=== PATIENT | male | born 1950 | race Caucasian/White ===

== ENCOUNTER 2017-01-01 12:36 | Emergency (ER) | payer MEDICARE, OTHER ==
--- NOTE | 2017-01-01 14:04 | REP ---
Clinical: Pain. Technique: AP, lateral, bilateral oblique and sunrise views of the right knee. Findings: Advanced tricompartmental osteoarthritic degenerative changes include osteophytosis, subchondral sclerosis and joint space narrowing including osteophytes, subchondral sclerosis and patellofemoral joint space narrowing. No acute fracture dislocation. No obvious effusion. Impression: Advanced tricompartmental osteoarthritic degenerative changes. Signed by Sotero Lugo MD 01/01/2017 01:56 P
--- NOTE | 2017-01-01 14:30 | EDDOCDS ---
Physician Documentation [facility] Name: Malvin Valderrama Age: 66 yrs Sex: Male : 1950 Arrival Date: 01/01/2017 Time: 12:36 Bed I7 / 29 Private MD: Disposition: 01/01/17 14:02 Discharged to Home/Self Care. Impression: Pain in right knee. - Condition is Stable. - Discharge Instructions: Knee Pain. - Prescriptions for Colace 100 mg Oral Tablet - take 1 tablet by ORAL route every 12 hours; 14 tablet. Percocet 5- 325 mg Oral Tablet - take 1 tablet by ORAL route every 8-12 hours As needed MDD: 4 tabs; 10 tablet. - Medication Reconciliation, Local Pharmacy Hours form. - Follow up: Savannah Rangel MD; When: Call to arrange an appointment; Reason: Continuance of care. Follow up: Andrea Hinds MD; When: Call to arrange an appointment; Reason: Continuance of care. - Problem is chronic. - Symptoms are unchanged. Historical: - Allergies: no known allergies; - Home Meds: 1. metformin 1,000 mg Oral tr24 1 tab twice a day 2. warfarin 5 mg Oral tab 1 tab once daily 3. carvedilol 6.25 mg oral tab 1 tab 2 times per day 4. simvastatin 40 mg Oral tab 1 tab once daily 5. sotalol 80 mg Oral tab 1 tab daily 6. doxazosin 2 mg oral tab 1 tab once daily 7. glipizide 5 mg Oral tr24 1 tab once daily 8. lisinopril 40 mg Oral tab 1 tab once daily 9. Novolin 70/30 InnoLet 100 unit/mL (70-30) Sub-Q inpn 32 unit daily - PMHx: Diabetes - IDDM: uncontrolled; unknown heart problems - states "they shocked my heart back to normal"; Hypertension; CVA; neuropathy; PE; - PSHx: Cholecystectomy; Appendectomy; Tonsillectomy; Adenoidectomy; cardiac cath; - Social history: Smoking status: Patient states was never smoker of tobacco. No barriers to communication noted, The patient speaks fluent Divehi, Speaks appropriately for age. - Family history: Not pertinent. - : The pt / caregiver states he / she is on anticoagulants: coumadin. Home medication list is obtained from the patient. - Exposure Risk Screening:: None identified. Vital Signs: 01/01 12:55 BP 142 / 89; Pulse 87; Resp 18; Temp 99.5(O); Pulse Ox 96% on R/A; Weight 149.69 kg / pml 330.01 lbs; Height 6 ft. 0 in. (182.88 cm); Pain 0/10; 14:29 BP 138 / 87; Pulse 92; Resp 18; Temp 99.4; Pulse Ox 96% ; pml 12:55 Body Mass Index 44.76 (149.69 kg, 182.88 cm) pml MDM: 13:21 Misc. Nursing Order ordered. fg 13:22 Knee, Complete Ordered. EDMS 13:53 Financial registration complete. lg 14:13 [facility] [place] Payment Agreement was scanned into [employer] and attached to record. lg Signatures: Dispatcher [employer] EDDhara Benson Reg Reg lg Morena Pascual,RAFFI RN pml Samantha Briceño MD MD fg The chart was reviewed and I authenticate all verbal orders and agree with the evaluation and treatment provided.Attachments: 14:13 [facility] [place] Payment Agreement lg MTDD
--- NOTE | 2017-01-01 14:30 | EDDOCDS ---
Nurse's Notes [facility] Name: Malvin Valderrama Age: 66 yrs Sex: Male : 1950 Arrival Date: 01/01/2017 Time: 12:36 Bed I7 / 29 Private MD: Diagnosis: Pain in right knee Presentation: 01/01 12:55 Presenting complaint: Patient states: woke up this AM with a headache which has pml resolved. pt reports pain in right knee. states unable to bear weight. denies injury. This patient has no additional risk factors. Adult Sepsis Screening: The patient does not have new or worsening altered mentation. Patient's respiratory rate is less than 22. Systolic blood pressure is greater than 100. Patient has a qSOFA score of 0- Negative Sepsis Screen. Suicide/Homicide risk assessment- the patient denies having any suicidal and/or homicidal ideations and does not present with any other emotional, behavioral or mental health complaints. Status: Patient is not a service or work dispatcher or dependent. Transition of care: patient was not received from another setting of care. 12:55 Acuity: MARLEN Level 3 pml 12:55 Method Of Arrival: Ambulance pml Triage Assessment: 12:55 Headache History: This patient does not have a history of previous headaches. General: pml Appears in no apparent distress, comfortable, Behavior is appropriate for age, cooperative. Pain: Location: right knee Pain currently is 0 out of 10 on a pain scale. At worst was 10 out of 10 on a pain scale. Pain began this AM Also complains of no other associated symptoms. The patient is triaged at the bedside. See Assessment in Nurses Notes section of ED record. Neurological: Level of Consciousness is awake, alert, Oriented to person, place, time. Cardiovascular: Capillary refill < 3 seconds. Respiratory: Airway is patent Respiratory effort is even, unlabored, Respiratory pattern is regular, symmetrical. GI: Abdomen is non- distended. Derm: Skin is pink, warm & dry. Historical: - Allergies: no known allergies; - Home Meds: 1. metformin 1,000 mg Oral tr24 1 tab twice a day 2. warfarin 5 mg Oral tab 1 tab once daily 3. carvedilol 6.25 mg oral tab 1 tab 2 times per day 4. simvastatin 40 mg Oral tab 1 tab once daily 5. sotalol 80 mg Oral tab 1 tab daily 6. doxazosin 2 mg oral tab 1 tab once daily 7. glipizide 5 mg Oral tr24 1 tab once daily 8. lisinopril 40 mg Oral tab 1 tab once daily 9. Novolin 70/30 InnoLet 100 unit/mL (70-30) Sub-Q inpn 32 unit daily - PMHx: Diabetes - IDDM: uncontrolled; unknown heart problems - states "they shocked my heart back to normal"; Hypertension; CVA; neuropathy; PE; - PSHx: Cholecystectomy; Appendectomy; Tonsillectomy; Adenoidectomy; cardiac cath; - Social history: Smoking status: Patient states was never smoker of tobacco. No barriers to communication noted, The patient speaks fluent Albanian, Speaks appropriately for age. - Family history: Not pertinent. - : The pt / caregiver states he / she is on anticoagulants: coumadin. Home medication list is obtained from the patient. - Exposure Risk Screening:: None identified. Screenin:59 Screening information is obtained from the patient. Fall risk: At risk due to pml immobility. Assistance ADL's: requires no assistance with activities of daily living. Abuse/DV Screen: The patient / caregiver reports he/she is: not in a situation that causes fear, pain or injury. Nutritional screening: No deficits noted. Advance Directives: Currently, there is no health care proxy. home support is adequate. Assessment: 12:59 General: see triage note. pml 14:20 General: Appears in no apparent distress, Behavior is appropriate for age, cooperative. pml Pain: Location: right knee Pain currently is 0 out of 10 on a pain scale. Neurological: Level of Consciousness is awake, alert, Oriented to person, place, time. Cardiovascular: Capillary refill < 3 seconds. Respiratory: Airway is patent Respiratory effort is even, unlabored. GI: Abdomen is non- distended obese. Derm: Skin is pink, warm & dry. Vital Signs: 12:55 BP 142 / 89; Pulse 87; Resp 18; Temp 99.5(O); Pulse Ox 96% on R/A; Weight 149.69 kg; pml Height 6 ft. 0 in. (182.88 cm); Pain 0/10; 14:29 BP 138 / 87; Pulse 92; Resp 18; Temp 99.4; Pulse Ox 96% ; pml 12:55 Body Mass Index 44.76 (149.69 kg, 182.88 cm) [facility] Vitals: 12:55 Log In Time N/A - ambulance arrival. pml ED Course: 12:37 Patient visited by Margo Morris PCA. ar3 12:37 Patient moved to Waiting ar3 12:38 Patient moved to I7 ar3 12:57 Triage Initiated pml 12:59 Patient visited by Morena Pascual RN. pml 12:59 The patient / caregiver is instructed regarding the plan of care and ED course. Patient pml has correct armband on for positive identification. Placed in gown. Bed in low position. Call light in reach. Side rails up X2. 13:07 Samantha Briceño MD is Attending Physician. fg 13:07 Patient visited by Samantha Briceño MD. fg 14:01 Savannah Rangel MD is Referral Physician. fg 14:01 Andrea Hinds MD is Referral Physician. fg 14:11 Patient name changed from Malvin\\S\\\\S\\Valderrama\\S\\ to Malvin\\S\\Slade\\S\\Valderrama. EDWI 14:13 [facility] Payment Agreement was scanned into [employer] and attached to record. lg 14:20 No IV's were initiated during this patient's visit. No procedures done that require pml assistance. Eric wrap to right knee. Patient has positive distal pulse, brisk capillary refill, and positive sensation after application. Order Results: There are currently no results for this order. Outcome: 14:02 Discharge ordered by Provider. fg 14:20 Discharge Assessment: Patient awake, alert and oriented x 3. No cognitive and/or pml functional deficits noted. Patient verbalized understanding of disposition instructions. patient administered narcotics - no. The following High Risk Discharge criteria are identified: None. Discharged to home with family. Condition: good Condition: stable. Discharge instructions given to patient, Instructed on discharge instructions, follow up and referral plans. medication usage, no driving heavy equipment, Demonstrated understanding of instructions, medications, Pt was receptive of discharge instructions/ teaching. No special radiology studies were completed. Property sent home with patient. 14:29 Patient left the ED. pml Signatures: Dispatcher [employer] EDWI Dhara Stringer, Reg Reg Margo Morris PCA WAN SUPPORT SPECIALIST ar3 Morena Pascual RN RN pml Samantha Briceño MD MD fg MTDD
--- NOTE | 2017-01-03 15:29 | EDDOCDS ---
Nurse's Notes [facility] Name: Malvin Valderrama Age: 66 yrs Sex: Male : 1950 Arrival Date: 01/01/2017 Time: 12:36 Bed I7 / 29 Private MD: Diagnosis: Pain in right knee Presentation: 01/01 12:55 Presenting complaint: Patient states: woke up this AM with a headache which has pml resolved. pt reports pain in right knee. states unable to bear weight. denies injury. This patient has no additional risk factors. Adult Sepsis Screening: The patient does not have new or worsening altered mentation. Patient's respiratory rate is less than 22. Systolic blood pressure is greater than 100. Patient has a qSOFA score of 0- Negative Sepsis Screen. Suicide/Homicide risk assessment- the patient denies having any suicidal and/or homicidal ideations and does not present with any other emotional, behavioral or mental health complaints. 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 Transition of care: patient was not received from another setting of care. 12:55 Acuity: MARLEN Level 3 pml 12:55 Method Of Arrival: Ambulance pml Triage Assessment: 12:55 Headache History: This patient does not have a history of previous headaches. General: pml Appears in no apparent distress, comfortable, Behavior is appropriate for age, cooperative. Pain: Location: right knee Pain currently is 0 out of 10 on a pain scale. At worst was 10 out of 10 on a pain scale. Pain began this AM Also complains of no other associated symptoms. The patient is triaged at the bedside. See Assessment in Nurses Notes section of ED record. Neurological: Level of Consciousness is awake, alert, Oriented to person, place, time. Cardiovascular: Capillary refill < 3 seconds. Respiratory: Airway is patent Respiratory effort is even, unlabored, Respiratory pattern is regular, symmetrical. GI: Abdomen is non- distended. Derm: Skin is pink, warm & dry. Historical: - Allergies: no known allergies; - Home Meds: 1. metformin 1,000 mg Oral tr24 1 tab twice a day 2. warfarin 5 mg Oral tab 1 tab once daily 3. carvedilol 6.25 mg oral tab 1 tab 2 times per day 4. simvastatin 40 mg Oral tab 1 tab once daily 5. sotalol 80 mg Oral tab 1 tab daily 6. doxazosin 2 mg oral tab 1 tab once daily 7. glipizide 5 mg Oral tr24 1 tab once daily 8. lisinopril 40 mg Oral tab 1 tab once daily 9. Novolin 70/30 InnoLet 100 unit/mL (70-30) Sub-Q inpn 32 unit daily - PMHx: Diabetes - IDDM: uncontrolled; unknown heart problems - states "they shocked my heart back to normal"; Hypertension; CVA; neuropathy; PE; - PSHx: Cholecystectomy; Appendectomy; Tonsillectomy; Adenoidectomy; cardiac cath; - Social history: Smoking status: Patient states was never smoker of tobacco. No barriers to communication noted, The patient speaks fluent Indonesian, Speaks appropriately for age. - Family history: Not pertinent. - : The pt / caregiver states he / she is on anticoagulants: coumadin. Home medication list is obtained from the patient. - Exposure Risk Screening:: None identified. Screenin:59 Screening information is obtained from the patient. Fall risk: At risk due to pml immobility. Assistance ADL's: requires no assistance with activities of daily living. Abuse/DV Screen: The patient / caregiver reports he/she is: not in a situation that causes fear, pain or injury. Nutritional screening: No deficits noted. Advance Directives: Currently, there is no health care proxy. home support is adequate. Assessment: 12:59 General: see triage note. pml 14:20 General: Appears in no apparent distress, Behavior is appropriate for age, cooperative. pml Pain: Location: right knee Pain currently is 0 out of 10 on a pain scale. Neurological: Level of Consciousness is awake, alert, Oriented to person, place, time. Cardiovascular: Capillary refill < 3 seconds. Respiratory: Airway is patent Respiratory effort is even, unlabored. GI: Abdomen is non- distended obese. Derm: Skin is pink, warm & dry. Vital Signs: 12:55 BP 142 / 89; Pulse 87; Resp 18; Temp 99.5(O); Pulse Ox 96% on R/A; Weight 149.69 kg; pml Height 6 ft. 0 in. (182.88 cm); Pain 0/10; 14:29 BP 138 / 87; Pulse 92; Resp 18; Temp 99.4; Pulse Ox 96% ; pml 12:55 Body Mass Index 44.76 (149.69 kg, 182.88 cm) [facility] Vitals: 12:55 Log In Time N/A - ambulance arrival. pml ED Course: 12:37 Patient visited by Margo Morris PCA. ar3 12:37 Patient moved to Waiting ar3 12:38 Patient moved to I7 / ar3 12:57 Triage Initiated pml 12:59 Patient visited by Morena Pascual RN. pml 12:59 The patient / caregiver is instructed regarding the plan of care and ED course. Patient pml has correct armband on for positive identification. Placed in gown. Bed in low position. Call light in reach. Side rails up X2. 13:07 Samantha Briceño MD is Attending Physician. fg 13:07 Patient visited by Samantha Briceño MD. fg 14:01 Savannah Rangel MD is Referral Physician. fg 14:01 Andrea Hinds MD is Referral Physician. fg 14:11 Patient name changed from Malvin\\S\\\\S\\Valderrama\\S\\ to Malvin\\S\\Slade\\S\\Valderrama. EDMS 14:13 [facility] [place] Payment Agreement was scanned into [employer] and attached to record. lg 14:20 No IV's were initiated during this patient's visit. No procedures done that require pml assistance. Eric wrap to right knee. Patient has positive distal pulse, brisk capillary refill, and positive sensation after application. 14:31 Knee, Complete Returned. EDMS 17:52 T-Sheet-- Draft Copy was scanned into [employer] and attached to record. klr 01/02 12:24 PCR was scanned into [employer] and attached to record. gb Order Results: Radiology Order: Knee, Complete Test: Knee, Complete REASON FOR EXAMINATION: patella pain, no trauma; Clinical: Pain.; ; Technique: AP, lateral, bilateral oblique and sunrise views of the right knee.; ; Findings:; Advanced tricompartmental osteoarthritic degenerative changes include; osteophytosis, subchondral sclerosis and joint space narrowing including; osteophytes, subchondral sclerosis and patellofemoral joint space narrowing. No; acute fracture dislocation. No obvious effusion.; ; Impression:; Advanced tricompartmental osteoarthritic degenerative changes.; ; ; Signed by; Sotero Lugo MD 01/01/2017 01:56 P; Outcome: 01/01 14:02 Discharge ordered by Provider. fg 14:20 Discharge Assessment: Patient awake, alert and oriented x 3. No cognitive and/or pml functional deficits noted. Patient verbalized understanding of disposition instructions. patient administered narcotics - no. The following High Risk Discharge criteria are identified: None. Discharged to home with family. Condition: good Condition: stable. Discharge instructions given to patient, Instructed on discharge instructions, follow up and referral plans. medication usage, no driving heavy equipment, Demonstrated understanding of instructions, medications, Pt was receptive of discharge instructions/ teaching. No special radiology studies were completed. Property sent home with patient. 14:29 Patient left the ED. pml Signatures: Dispatcher [employer] EDMS Anne Holt, Reg Reg gb Dhara Stringer, Reg Reg lg Margo Morris, CHURCH MUSICIAN CHURCH MUSICIAN ar3 Morena Pascual,RN RN Samantha Thompson MD MD fg Redder, Kathie klr Chart Complete JOSEPH
--- NOTE | 2017-01-03 15:29 | EDDOCDS ---
Physician Documentation [facility] Name: Malvin Valderrama Age: 66 yrs Sex: Male : 1950 Arrival Date: 01/01/2017 Time: 12:36 Bed I7 / 29 Private MD: Disposition: 01/01/17 14:02 Discharged to Home/Self Care. Impression: Pain in right knee. - Condition is Stable. - Discharge Instructions: Knee Pain. - Prescriptions for Colace 100 mg Oral Tablet - take 1 tablet by ORAL route every 12 hours; 14 tablet. Percocet 5- 325 mg Oral Tablet - take 1 tablet by ORAL route every 8-12 hours As needed MDD: 4 tabs; 10 tablet. - Medication Reconciliation, Local Pharmacy Hours form. - Follow up: Savannah Rangel MD; When: Call to arrange an appointment; Reason: Continuance of care. Follow up: Andrea Hinds MD; When: Call to arrange an appointment; Reason: Continuance of care. - Problem is chronic. - Symptoms are unchanged. Historical: - Allergies: no known allergies; - Home Meds: 1. metformin 1,000 mg Oral tr24 1 tab twice a day 2. warfarin 5 mg Oral tab 1 tab once daily 3. carvedilol 6.25 mg oral tab 1 tab 2 times per day 4. simvastatin 40 mg Oral tab 1 tab once daily 5. sotalol 80 mg Oral tab 1 tab daily 6. doxazosin 2 mg oral tab 1 tab once daily 7. glipizide 5 mg Oral tr24 1 tab once daily 8. lisinopril 40 mg Oral tab 1 tab once daily 9. Novolin 70/30 InnoLet 100 unit/mL (70-30) Sub-Q inpn 32 unit daily - PMHx: Diabetes - IDDM: uncontrolled; unknown heart problems - states "they shocked my heart back to normal"; Hypertension; CVA; neuropathy; PE; - PSHx: Cholecystectomy; Appendectomy; Tonsillectomy; Adenoidectomy; cardiac cath; - Social history: Smoking status: Patient states was never smoker of tobacco. No barriers to communication noted, The patient speaks fluent Swedish, Speaks appropriately for age. - Family history: Not pertinent. - : The pt / caregiver states he / she is on anticoagulants: coumadin. Home medication list is obtained from the patient. - Exposure Risk Screening:: None identified. Vital Signs: 01/01 12:55 BP 142 / 89; Pulse 87; Resp 18; Temp 99.5(O); Pulse Ox 96% on R/A; Weight 149.69 kg / pml 330.01 lbs; Height 6 ft. 0 in. (182.88 cm); Pain 0/10; 14:29 BP 138 / 87; Pulse 92; Resp 18; Temp 99.4; Pulse Ox 96% ; pml 12:55 Body Mass Index 44.76 (149.69 kg, 182.88 cm) pml MDM: 13:21 Misc. Nursing Order ordered. fg 13:22 Knee, Complete Ordered. EDMS 13:53 Financial registration complete. lg 14:13 [facility] [place] Payment Agreement was scanned into [employer] and attached to record. lg 17:52 T-Sheet-- Draft Copy was scanned into [employer] and attached to record. klr 01/02 12:24 PCR was scanned into [employer] and attached to record. gb Signatures: Dispatcher [employer] EDMS Anne Holt, Reg Reg gb Dhara Stringer, Reg Reg lg Morena Pascual,RN RN pml Samantha Briceño MD MD fg Redder, Kathie klr The chart was reviewed and I authenticate all verbal orders and agree with the evaluation and treatment provided.Attachments: 01/01 14:13 [facility] [place] Payment Agreement lg 17:52 T-Sheet-- Draft Copy klr Chart Complete MTDD
--- NOTE | 2017-01-03 15:29 | EDDOCDS ---
Physician Documentation [facility] Name: Malvin Valderrama Age: 66 yrs Sex: Male : 1950 Arrival Date: 01/01/2017 Time: 12:36 Bed I7 / 29 Private MD: Disposition: 01/01/17 14:02 Discharged to Home/Self Care. Impression: Pain in right knee. - Condition is Stable. - Discharge Instructions: Knee Pain. - Prescriptions for Colace 100 mg Oral Tablet - take 1 tablet by ORAL route every 12 hours; 14 tablet. Percocet 5- 325 mg Oral Tablet - take 1 tablet by ORAL route every 8-12 hours As needed MDD: 4 tabs; 10 tablet. - Medication Reconciliation, Local Pharmacy Hours form. - Follow up: Savannah Rangel MD; When: Call to arrange an appointment; Reason: Continuance of care. Follow up: Andrea Hinds MD; When: Call to arrange an appointment; Reason: Continuance of care. - Problem is chronic. - Symptoms are unchanged. Historical: - Allergies: no known allergies; - Home Meds: 1. metformin 1,000 mg Oral tr24 1 tab twice a day 2. warfarin 5 mg Oral tab 1 tab once daily 3. carvedilol 6.25 mg oral tab 1 tab 2 times per day 4. simvastatin 40 mg Oral tab 1 tab once daily 5. sotalol 80 mg Oral tab 1 tab daily 6. doxazosin 2 mg oral tab 1 tab once daily 7. glipizide 5 mg Oral tr24 1 tab once daily 8. lisinopril 40 mg Oral tab 1 tab once daily 9. Novolin 70/30 InnoLet 100 unit/mL (70-30) Sub-Q inpn 32 unit daily - PMHx: Diabetes - IDDM: uncontrolled; unknown heart problems - states "they shocked my heart back to normal"; Hypertension; CVA; neuropathy; PE; - PSHx: Cholecystectomy; Appendectomy; Tonsillectomy; Adenoidectomy; cardiac cath; - Social history: Smoking status: Patient states was never smoker of tobacco. No barriers to communication noted, The patient speaks fluent Telugu, Speaks appropriately for age. - Family history: Not pertinent. - : The pt / caregiver states he / she is on anticoagulants: coumadin. Home medication list is obtained from the patient. - Exposure Risk Screening:: None identified. Vital Signs: 01/01 12:55 BP 142 / 89; Pulse 87; Resp 18; Temp 99.5(O); Pulse Ox 96% on R/A; Weight 149.69 kg / pml 330.01 lbs; Height 6 ft. 0 in. (182.88 cm); Pain 0/10; 14:29 BP 138 / 87; Pulse 92; Resp 18; Temp 99.4; Pulse Ox 96% ; pml 12:55 Body Mass Index 44.76 (149.69 kg, 182.88 cm) pml MDM: 13:21 Misc. Nursing Order ordered. fg 13:22 Knee, Complete Ordered. EDMS 13:53 Financial registration complete. lg 14:13 [facility] [place] Agreement was scanned into [employer] and attached to record. lg 17:52 T-Sheet-- Draft Copy was scanned into [employer] and attached to record. klr 01/02 12:24 PCR was scanned into [employer] and attached to record. gb Signatures: Dispatcher [employer] EDMS Anne Holt, Reg Reg gb Dhara Stringer, Reg Reg lg Morena Pascual,RN RN pml Samantha Briceño MD MD fg Redder, Kathie klr The chart was reviewed and I authenticate all verbal orders and agree with the evaluation and treatment provided.Attachments: 01/01 14:13 [facility] Agreement lg 17:52 T-Sheet-- Draft Copy klr Chart Complete MTDD
== END 2017-01-01 14:29 | disposition home or self-care (01) ==
LOC: M ED 12:36
DX: M25.562 Pain in left knee (principal); E11.9 Type 2 diabetes mellitus without complications; I10 Essential (primary) hypertension; G62.9 Polyneuropathy, unspecified; I26.99 Other pulmonary embolism without acute cor pulmonale; I63.9 Cerebral infarction, unspecified; Z79.01 Long term (current) use of anticoagulants; Z79.84 Long term (current) use of oral hypoglycemic drugs; Z79.899 Other long term (current) drug therapy; Z79.4 Long term (current) use of insulin

== ENCOUNTER → 2020-06-15 | Outpatient (REF) | payer MEDICARE | LOC: M LAB REF 10:14 | PROVIDERS: ATTEND Physician Assistant | DX: C44.319 Basal cell carcinoma of skin of other parts of face (principal) ==

== ENCOUNTER → 2021-02-26 | Outpatient (REF) | payer MEDICARE ==
[2021-02-26 13:09] LABS: CALCIUM LEVEL 8.9 MG/DL (8.8-10.2); CREATININE FOR GFR 1.45 MG/DL (0.70-1.30); GLOMERULAR FILTRATION RATE 51.1 (>42); POTASSIUM SERUM 5.7 MEQ/L (3.5-5.1)
[2021-02-26 13:21] LABS: MALB URINE SIEMENS 5.1 MG/L; MAU/CREAT RATIO 3.1 MCG/MG (0.0-30.0)
[2021-02-26 14:15] LABS: HEMOGLOBIN A1c 7.7 %
== END ==
LOC: M LABDRWAD 12:17
PROVIDERS: ATTEND Nurse Practitioner Family
DX: E11.65 Type 2 diabetes mellitus with hyperglycemia (principal)

== ENCOUNTER → 2021-06-04 | Outpatient (CLI) | payer MEDICARE ==
--- NOTE | 2021-06-04 09:15 | REP ---
INDICATION: DYSPNEA, UNSPECIFIED. COMPARISON: Comparison chest x-ray is from July 20, 2018. TECHNIQUE: Two views.. FINDINGS: The lungs are well inflated and free of infiltrate. The pleural angles are sharp. The heart size is normal. Pulmonary vasculature is not increased. No significant bony abnormality is seen. The thoracic aorta is somewhat tortuous as before. There are degenerative changes in the thoracic spine. IMPRESSION: No acute disease.. <Electronically signed by Alexx Munson > 06/04/21 0935
== END ==
LOC: M ADAMS 08:56
PROVIDERS: ATTEND Physician Assistant
DX: R06.00 Dyspnea, unspecified (principal)

== ENCOUNTER → 2021-07-01 | Outpatient (REF) | payer MEDICARE ==
[2021-07-01 13:21] LABS: HEMOGLOBIN A1c 7.7 %
[2021-07-01 13:36] LABS: ALBUMIN 3.3 GM/DL (3.2-5.2); BILIRUBIN,TOTAL 0.4 MG/DL (0.2-1.0); CALCIUM LEVEL 8.4 MG/DL (8.8-10.2); CHOLESTEROL RISK RATIO 3.607 (<5); CREATININE FOR GFR 1.43 MG/DL (0.70-1.30); GLOMERULAR FILTRATION RATE 51.9 (>42); POTASSIUM SERUM 5.5 MEQ/L (3.5-5.1); TOTAL PROTEIN 7.6 GM/DL (6.4-8.2)
== END ==
LOC: M LABDRWAD 12:15
PROVIDERS: ATTEND Nurse Practitioner Family
DX: E11.65 Type 2 diabetes mellitus with hyperglycemia (principal)

== ENCOUNTER → 2022-01-28 | Outpatient (REF) | payer MEDICARE ==
[2022-01-28 18:03] LABS: HEMOGLOBIN A1c 8.1 %
[2022-01-28 18:08] LABS: CREATININE, URINE 98.5 MG/DL; MALB URINE SIEMENS 11.9 MG/L
[2022-01-28 18:25] LABS: ALBUMIN 3.4 GM/DL (3.2-5.2); BILIRUBIN,TOTAL 0.5 MG/DL (0.2-1.0); CALCIUM LEVEL 9.5 MG/DL (8.8-10.2); CHOLESTEROL RISK RATIO 3.709 (<5); CREATININE FOR GFR 1.56 MG/DL (0.70-1.30); GLOMERULAR FILTRATION RATE 46.8 (>42); POTASSIUM SERUM 5.2 MEQ/L (3.5-5.1)
== END ==
LOC: M LABDRWAD 16:20
PROVIDERS: ATTEND Nurse Practitioner Family
DX: E11.65 Type 2 diabetes mellitus with hyperglycemia (principal)

== ENCOUNTER → 2022-08-01 | Outpatient (CLI) | payer MEDICARE ==
[2022-08-01 13:28] LABS: ALBUMIN 3.3 GM/DL (3.2-5.2); BILIRUBIN,TOTAL 0.6 MG/DL (0.2-1.0); CALCIUM LEVEL 8.9 MG/DL (8.8-10.2); CREATININE FOR GFR 1.75 MG/DL (0.70-1.30); POTASSIUM SERUM 5.3 MEQ/L (3.5-5.1); TOTAL PROTEIN 7.9 GM/DL (6.4-8.2)
== END ==
LOC: M ADAMS 10:38
PROVIDERS: ATTEND Nurse Practitioner Family
DX: E11.65 Type 2 diabetes mellitus with hyperglycemia (principal)

== ENCOUNTER → 2023-02-14 | Outpatient (REF) | payer MEDICARE ==
[2023-02-14 15:17] LABS: CALCIUM LEVEL 8.3 MG/DL (8.3-10.6); CHOLESTEROL RISK RATIO 4.21 (<5); CREATININE FOR GFR 1.34 MG/DL (0.70-1.30); GLOMERULAR FILTRATION RATE 55.6 (>42); HDL CHOLESTEROL 22.3 MG/DL (>40); LDL CHOLESTEROL 52.7 MG/DL (<100); NON-HDL-C 71.7 MG/DL; POTASSIUM SERUM 5.1 MMOL/L (3.5-5.1)
[2023-02-14 15:35] LABS: MAU/CREAT RATIO 2.8 MCG/MG (0.0-30.0)
[2023-02-14 16:13] LABS: HEMOGLOBIN A1c 7.3 % (4.0-6.0)
== END ==
LOC: M LABDRWAD 12:57
PROVIDERS: ATTEND Nurse Practitioner Family
DX: E11.65 Type 2 diabetes mellitus with hyperglycemia (principal); E78.5 Hyperlipidemia, unspecified

== ENCOUNTER → 2023-08-28 | Outpatient (REF) | payer MEDICARE, OTHER ==
[2023-08-28 15:28] LABS: HEMOGLOBIN A1c 6.3 % (4.0-6.0)
[2023-08-28 15:39] LABS: CALCIUM LEVEL 8.3 MG/DL (8.3-10.6); CREATININE FOR GFR 1.49 MG/DL (0.70-1.30); GLOMERULAR FILTRATION RATE 49.2 (>42); POTASSIUM SERUM 5.5 MMOL/L (3.5-5.1)
[2023-08-29 15:09] LABS: CREATININE, URINE 157.5 MG/DL; MAU/CREAT RATIO 3.1 MCG/MG (0.0-30.0)
== END ==
LOC: M LABDRWAD 13:18
PROVIDERS: ATTEND Nurse Practitioner Family
DX: E11.65 Type 2 diabetes mellitus with hyperglycemia (principal); N18.30 Chronic kidney disease, stage 3 unspecified

== ENCOUNTER → 2024-03-11 | Outpatient (REF) | payer OTHER, MEDICARE ==
[2024-03-11 13:35] LABS: ALBUMIN 2.9 G/DL (3.2-5.2); BILIRUBIN,TOTAL 0.4 MG/DL (0.3-1.2); CALCIUM LEVEL 7.8 MG/DL (8.3-10.6); CHOLESTEROL RISK RATIO 3.85 (<5); CREATININE FOR GFR 1.77 MG/DL (0.70-1.30); GLOMERULAR FILTRATION RATE 40.2 (>42); HDL CHOLESTEROL 16.6 MG/DL (>40); LDL CHOLESTEROL 28.2 MG/DL (<100); NON-HDL-C 47.4 MG/DL; POTASSIUM SERUM 4.9 MMOL/L (3.5-5.1)
[2024-03-11 13:54] LABS: MAU/CREAT RATIO 2.3 MCG/MG (0.0-30.0)
== END ==
LOC: M PLALAB 11:38
PROVIDERS: ATTEND Nurse Practitioner Family
DX: E11.65 Type 2 diabetes mellitus with hyperglycemia (principal); E78.5 Hyperlipidemia, unspecified; I10 Essential (primary) hypertension

== ENCOUNTER → 2024-09-12 | Outpatient (REF) | payer OTHER, MEDICARE ==
[2024-09-12 15:03] LABS: HEMOGLOBIN A1c 5.8 % (4.0-6.0)
[2024-09-12 15:45] LABS: CREATININE FOR GFR 1.51 MG/DL (0.70-1.30); GLOMERULAR FILTRATION RATE 48.3 (>42); POTASSIUM SERUM 6.2 MMOL/L (3.5-5.1)
== END ==
LOC: M LAB REF 12:50
PROVIDERS: ATTEND Nurse Practitioner Family
DX: E11.65 Type 2 diabetes mellitus with hyperglycemia (principal); N18.30 Chronic kidney disease, stage 3 unspecified

== ENCOUNTER 2025-01-17 14:42 | Inpatient (IN) | payer OTHER, MEDICARE ==
[~2025-01-17] VITALS: Ht 182.9 cm; Wt 128.1 kg
[2025-01-17 16:12] LABS: VENOUS HCO3 23.2 MMOL/L (23.0-27.0); VENOUS O2 SATURATION 68.9 % (60.0-80.0); VENOUS PARTIAL PRESSURE CO2 46.1 mmHg (38.0-50.0); VENOUS PARTIAL PRESSURE O2 37.8 mmHg (30.0-50.0); VENOUS STANDARD HCO3 21.4 MMOL/L; VENOUS TOTAL CO2 24.6 MMOL/L (24.0-28.0)
[2025-01-17] MEDS: methylPREDNISolone 125MG 2ML VIAL IV ONE (16:12)
[2025-01-17 16:15] LABS: BASO % 0.2 % (0.0-1.0); EOS % 0.1 % (0.0-3.0); HEMATOCRIT 40.4 % (42.0-52.0); HEMOGLOBIN 11.8 g/dl (13.5-17.5); LYMPH # 1.4 10^3/uL (1.5-5.0); LYMPH % 12.3 % (24.0-44.0); MEAN CORPUSCULAR HEMOGLOBIN 25.2 pg (27.0-33.0); MEAN CORPUSCULAR HGB CONC 29.2 g/dl (32.0-36.5); MEAN CORPUSCULAR VOLUME 86.3 fl (80.0-96.0); MONO # 0.9 10^3/uL (0.0-0.8); MONO % 7.9 % (2.0-8.0); NEUTROPHILS # 8.8 10^3/uL (1.5-8.5); NEUTROPHILS % 78.6 % (36.0-66.0); PLATELET COUNT, AUTOMATED 296 10^3/uL (150-450); RED BLOOD COUNT 4.68 10^6/uL (4.30-6.10); WHITE BLOOD COUNT 11.2 10^3/uL (4.0-10.0)
[2025-01-17] MEDS ORDERED: SOTA80TA32 PO (16:26)
[2025-01-17] MEDS ORDERED: CHLO125TA PO (16:26)
[2025-01-17] MEDS ORDERED: GLIP10TA15 PO (16:26)
[2025-01-17] MEDS ORDERED: XARE20TA PO (16:26)
[2025-01-17] MEDS ORDERED: DOXA1TAB41 PO (16:26)
[2025-01-17] MEDS: IPRATROPIUM 0.5MG/ALBUTEROL 2.5MG INH SOL UD 3ML (DUONEB) NEB PRN (16:26)
[2025-01-17] MEDS ORDERED: METF10004 PO (16:26)
[2025-01-17] MEDS ORDERED: LISI10TA22 PO (16:26)
[2025-01-17] MEDS ORDERED: CARV12.5 PO (16:26)
[2025-01-17] MEDS ORDERED: ATOR40TA75 PO (16:26)
[2025-01-17 16:44] LABS: LIPASE 44 U/L (12-53)
[2025-01-17 16:55] LABS: ALBUMIN 2.6 G/DL (3.2-5.2); ALKALINE PHOSPHATASE 95 U/L (40-129); ALT/SGPT 14 U/L (7.0-40); AST/SGOT 15 U/L (<34); BILIRUBIN,DIRECT 0.2 MG/DL (<0.4); BILIRUBIN,TOTAL 0.4 MG/DL (0.3-1.2); BLOOD UREA NITROGEN 22 MG/DL (9-23); CALCIUM LEVEL 7.2 MG/DL (8.3-10.6); CARBON DIOXIDE LEVEL 24 MMOL/L (20-31); CHLORIDE LEVEL 101 MMOL/L (98-107); CREATININE FOR GFR 1.23 MG/DL (0.70-1.30); GLOMERULAR FILTRATION RATE > 60.0 (>42); GLUCOSE, FASTING 430 MG/DL (74-106); POTASSIUM SERUM 4.2 MMOL/L (3.5-5.1); SODIUM LEVEL 135 MMOL/L (136-145); TOTAL PROTEIN 7.4 G/DL (5.7-8.2)
[2025-01-17] MEDS ORDERED: ISOVUE-370 76% 100ML VIAL As Ordered ONE (17:41)
[2025-01-17] MEDS: OSELTAMIVIR PHOSPHATE 75 MG CAP PO ONE (18:06)
[2025-01-17] MEDS ORDERED: HOME MED LIST COMPLETE! XX SCH (18:35)
[2025-01-17] MEDS ORDERED: GLUCAGON INJ 1MG VIAL SC PRN (18:55)
[2025-01-17] MEDS ORDERED: DEXTROSE 50% 50ML SYRINGE IV PRN (18:55)
[2025-01-17] MEDS ORDERED: GLUCOSE 4 GM CHEW PO PRN (18:55)
[2025-01-17 20:02] LABS: PROCALCITONIN 0.13 ng/ml
[2025-01-17] MEDS: guaiFENesin ER TABLET 600 MG TAB PO SCH (20:23)
[2025-01-17] MEDS: ATORVASTATIN 20 MG TAB PO SCH (20:23)
[2025-01-17] MEDS: CARVedilol 12.5 MG TAB PO SCH (20:24)
[2025-01-17] MEDS: NS 500 ML IV ONE (20:24)
[2025-01-17] MEDS: RIVAROXABAN 20MG TAB (XARELTO) PO SCH (20:25)
[2025-01-17] MEDS: LEVALBUTEROL 1.25MG 0.5ML CONCENTRATE NEB INH SCH (20:57)
[2025-01-17] MEDS: UNRESOLVED CLARIFICATION ENTRY XX STA (22:00)
[2025-01-17] MEDS: INSULIN LISPRO (NovoLOG) PER UNIT SC SCH (22:32)
[2025-01-18] MEDS ORDERED: methylPREDNISolone 125MG 2ML VIAL IV SCH
[2025-01-18] MEDS: NYSTATIN 100,000 UNITS/GM TOPICAL PWD 15GM TOP SCH (04:11)
[2025-01-18] MEDS: CALCIUM CARBONATE 500 MG CHEW U/D PO ONE (04:15)
[2025-01-18 06:40] LABS: HEMATOCRIT 39.2 % (42.0-52.0); HEMOGLOBIN 11.7 g/dl (13.5-17.5); MEAN CORPUSCULAR HEMOGLOBIN 24.8 pg (27.0-33.0); MEAN CORPUSCULAR HGB CONC 29.8 g/dl (32.0-36.5); MEAN CORPUSCULAR VOLUME 83.2 fl (80.0-96.0); PLATELET COUNT, AUTOMATED 320 10^3/uL (150-450); RED BLOOD COUNT 4.71 10^6/uL (4.30-6.10); WHITE BLOOD COUNT 6.9 10^3/uL (4.0-10.0)
[2025-01-18 07:05] LABS: ALBUMIN 2.7 G/DL (3.2-5.2); ALKALINE PHOSPHATASE 96 U/L (40-129); ALT/SGPT 11 U/L (7.0-40); AST/SGOT 12 U/L (<34); BILIRUBIN,TOTAL 0.5 MG/DL (0.3-1.2); BLOOD UREA NITROGEN 20 MG/DL (9-23); CALCIUM LEVEL 7.8 MG/DL (8.3-10.6); CARBON DIOXIDE LEVEL 30 MMOL/L (20-31); CHLORIDE LEVEL 99 MMOL/L (98-107); CREATININE FOR GFR 1.21 MG/DL (0.70-1.30); GLOMERULAR FILTRATION RATE > 60.0 (>42); GLUCOSE, FASTING 458 MG/DL (74-106); POTASSIUM SERUM 4.4 MMOL/L (3.5-5.1); SODIUM LEVEL 138 MMOL/L (136-145); TOTAL PROTEIN 7.7 G/DL (5.7-8.2)
[2025-01-18] MEDS: PANTOPRAZOLE 40MG TAB (PROTONIX) PO SCH ×2 (08:00→20:37)
[2025-01-18] MEDS: INSULIN LISPRO (NovoLOG) PER UNIT SC SCH (08:06)
[2025-01-18] MEDS: LanTUS (INSULIN GLARGINE INJ) 1 UNITS/0.01 ML SC SCH (08:59)
[2025-01-18] MEDS ORDERED: PANTOPRAZOLE 40MG VIAL IV SCH (09:00)
[2025-01-18] MEDS ORDERED: CHLORTHALIDONE 25 MG TAB PO SCH (09:00)
[2025-01-18] MEDS: DOXAZOSIN MESYLATE 1 MG TAB PO SCH (09:00)
[2025-01-18] MEDS: SOTALOL HCL 80 MG TAB PO SCH (09:00)
[2025-01-18] MEDS: OSELTAMIVIR PHOSPHATE 75 MG CAP PO SCH (09:02)
[2025-01-18] MEDS: predniSONE 20 MG TAB PO SCH (09:02)
[2025-01-18] MEDS: FAMOTIDINE 20 MG TAB PO ONE (12:20)
[2025-01-18 12:42] VITALS: BP 160/88; TEMP 99; O2SAT 91
[2025-01-18 20:34] VITALS: BP 120/67; TEMP 97.9; O2SAT 93
[2025-01-19 04:00] VITALS: BP 150/83; TEMP 98; O2SAT 93
[2025-01-19 05:51] LABS: HEMATOCRIT 37.4 % (42.0-52.0); HEMOGLOBIN 11.3 g/dl (13.5-17.5); MEAN CORPUSCULAR HEMOGLOBIN 25.5 pg (27.0-33.0); MEAN CORPUSCULAR HGB CONC 30.2 g/dl (32.0-36.5); MEAN CORPUSCULAR VOLUME 84.4 fl (80.0-96.0); PLATELET COUNT, AUTOMATED 356 10^3/uL (150-450); RED BLOOD COUNT 4.43 10^6/uL (4.30-6.10); WHITE BLOOD COUNT 14.2 10^3/uL (4.0-10.0)
[2025-01-19 06:24] LABS: CREATININE FOR GFR 1.28 MG/DL (0.70-1.30); GLOMERULAR FILTRATION RATE 58.3 (>42)
[2025-01-19] MEDS: TIOTROPIUM INHALER/CAPSULE (SPIRIVA) INH SCH (07:26)
[2025-01-19] MEDS: LanTUS (INSULIN GLARGINE INJ) 1 UNITS/0.01 ML SC SCH (08:52)
[2025-01-19 12:00] VITALS: BP 147/80; TEMP 98.5; O2SAT 96
[2025-01-19] MEDS: CHLORTHALIDONE 25 MG TAB PO SCH (15:24)
[2025-01-19 19:56] VITALS: BP 134/66; TEMP 98.4; O2SAT 94
[2025-01-20] VITALS (8 sets, daily range): BP systolic 82–169; BP diastolic 47–75; TEMP 97.2–97.9; O2SAT 91–94
[2025-01-20 06:00] LABS: HEMATOCRIT 37.1 % (42.0-52.0); MEAN CORPUSCULAR HEMOGLOBIN 25.1 pg (27.0-33.0); MEAN CORPUSCULAR HGB CONC 29.6 g/dl (32.0-36.5); MEAN CORPUSCULAR VOLUME 84.5 fl (80.0-96.0); PLATELET COUNT, AUTOMATED 314 10^3/uL (150-450); RED BLOOD COUNT 4.39 10^6/uL (4.30-6.10); WHITE BLOOD COUNT 12.8 10^3/uL (4.0-10.0)
[2025-01-20 06:28] LABS: CALCIUM LEVEL 7.9 MG/DL (8.3-10.6); CREATININE FOR GFR 1.3 MG/DL (0.70-1.30); GLOMERULAR FILTRATION RATE 57.3 (>42); POTASSIUM SERUM 4.4 MMOL/L (3.5-5.1)
[2025-01-20] MEDS: CALCIUM CARBONATE 500 MG CHEW U/D PO PRN (14:27)
[2025-01-20] MEDS: LACTATED RINGER'S 1000 ML IV ONE (16:24)
[2025-01-20] MEDS ORDERED: PILL CUTTER 1 EACH XX ONE (18:30)
[2025-01-20] MEDS: FAMOTIDINE 20 MG TAB PO PRN (18:33)
[2025-01-20 18:47] LABS: HEMATOCRIT 38.9 % (42.0-52.0); HEMOGLOBIN 11.6 g/dl (13.5-17.5); MEAN CORPUSCULAR HEMOGLOBIN 25.2 pg (27.0-33.0); MEAN CORPUSCULAR HGB CONC 29.8 g/dl (32.0-36.5); MEAN CORPUSCULAR VOLUME 84.6 fl (80.0-96.0); PLATELET COUNT, AUTOMATED 368 10^3/uL (150-450); WHITE BLOOD COUNT 15.6 10^3/uL (4.0-10.0)
[2025-01-20 19:15] LABS: CALCIUM LEVEL 7.7 MG/DL (8.3-10.6); CREATININE FOR GFR 1.46 MG/DL (0.70-1.30); GLOMERULAR FILTRATION RATE 50.1 (>42); POTASSIUM SERUM 4.6 MMOL/L (3.5-5.1)
[2025-01-20] MEDS ORDERED: LR 500 ML IV ONE (20:40)
[2025-01-20] MEDS: LR 500 ML IV ONE (20:47)
[2025-01-21 03:22] VITALS: BP 125/63; TEMP 97.7; O2SAT 92
[2025-01-21 05:55] LABS: HEMATOCRIT 38.2 % (42.0-52.0); HEMOGLOBIN 11.4 g/dl (13.5-17.5); MEAN CORPUSCULAR HEMOGLOBIN 25.5 pg (27.0-33.0); MEAN CORPUSCULAR HGB CONC 29.8 g/dl (32.0-36.5); MEAN CORPUSCULAR VOLUME 85.5 fl (80.0-96.0); PLATELET COUNT, AUTOMATED 349 10^3/uL (150-450); RED BLOOD COUNT 4.47 10^6/uL (4.30-6.10); WHITE BLOOD COUNT 15.1 10^3/uL (4.0-10.0)
[2025-01-21 06:30] LABS: CALCIUM LEVEL 7.9 MG/DL (8.3-10.6); CREATININE FOR GFR 1.62 MG/DL (0.70-1.30); GLOMERULAR FILTRATION RATE 44.4 (>42); POTASSIUM SERUM 4.4 MMOL/L (3.5-5.1)
[2025-01-21] MEDS: LanTUS (INSULIN GLARGINE INJ) 1 UNITS/0.01 ML SC SCH (08:22)
[2025-01-21 08:44] LABS: HEMOGLOBIN A1c 8.2 % (4.0-6.0)
[2025-01-21] MEDS: CARVedilol 6.25 MG TAB PO SCH (09:00)
[2025-01-21 12:00] VITALS: BP 107/63; TEMP 99; O2SAT 92
[2025-01-21 19:50] VITALS: BP 107/62; TEMP 97.7; O2SAT 94
[2025-01-22 02:45] VITALS: BP 118/68; TEMP 97.7; O2SAT 93
[2025-01-22 06:10] LABS: HEMATOCRIT 38.4 % (42.0-52.0); HEMOGLOBIN 11.5 g/dl (13.5-17.5); MEAN CORPUSCULAR HEMOGLOBIN 25.5 pg (27.0-33.0); MEAN CORPUSCULAR HGB CONC 29.9 g/dl (32.0-36.5); MEAN CORPUSCULAR VOLUME 85.1 fl (80.0-96.0); PLATELET COUNT, AUTOMATED 360 10^3/uL (150-450); RED BLOOD COUNT 4.51 10^6/uL (4.30-6.10)
[2025-01-22 06:25] LABS: CALCIUM LEVEL 8.1 MG/DL (8.3-10.6); CREATININE FOR GFR 1.45 MG/DL (0.70-1.30); GLOMERULAR FILTRATION RATE 50.5 (>42); POTASSIUM SERUM 4.4 MMOL/L (3.5-5.1)
[2025-01-22] MEDS: predniSONE 10MG TAB PO SCH (08:41)
[2025-01-22 12:00] VITALS: BP 108/68; TEMP 97.9; O2SAT 92
[2025-01-22 20:00] VITALS: BP 129/75; TEMP 98; O2SAT 94
[2025-01-22] MEDS: AUGMENTIN 875 MG TAB PO SCH (20:45)
[2025-01-23 04:00] VITALS: BP 103/66; TEMP 98; O2SAT 97
[2025-01-23 06:07] LABS: HEMATOCRIT 39.2 % (42.0-52.0); HEMOGLOBIN 11.8 g/dl (13.5-17.5); MEAN CORPUSCULAR HEMOGLOBIN 25.4 pg (27.0-33.0); MEAN CORPUSCULAR HGB CONC 30.1 g/dl (32.0-36.5); MEAN CORPUSCULAR VOLUME 84.5 fl (80.0-96.0); PLATELET COUNT, AUTOMATED 386 10^3/uL (150-450); RED BLOOD COUNT 4.64 10^6/uL (4.30-6.10); WHITE BLOOD COUNT 15.9 10^3/uL (4.0-10.0)
[2025-01-23 06:46] LABS: BLOOD UREA NITROGEN 41 MG/DL (9-23); CALCIUM LEVEL 8.2 MG/DL (8.3-10.6); CARBON DIOXIDE LEVEL 28 MMOL/L (20-31); CHLORIDE LEVEL 102 MMOL/L (98-107); CREATININE FOR GFR 1.21 MG/DL (0.70-1.30); GLOMERULAR FILTRATION RATE > 60.0 (>42); GLUCOSE, FASTING 272 MG/DL (74-106); POTASSIUM SERUM 4.3 MMOL/L (3.5-5.1); SODIUM LEVEL 138 MMOL/L (136-145)
[2025-01-23] MEDS: glipiZIDE (GLUCOTROL) 5 MG TAB PO SCH (08:59)
[2025-01-23 12:00] VITALS: BP 109/59; TEMP 97.3; O2SAT 97
[2025-01-23] MEDS ORDERED: LEVALBUTEROL 1.25MG 0.5ML CONCENTRATE NEB INH PRN (12:05)
[2025-01-23] MEDS: ADVAIR HFA 230/21MCG INHALER INH SCH (19:08)
[2025-01-24 04:00] VITALS: BP 153/85; TEMP 98; O2SAT 96
[2025-01-24 06:20] LABS: HEMATOCRIT 37.7 % (42.0-52.0); HEMOGLOBIN 11.2 g/dl (13.5-17.5); MEAN CORPUSCULAR HEMOGLOBIN 25.1 pg (27.0-33.0); MEAN CORPUSCULAR HGB CONC 29.7 g/dl (32.0-36.5); MEAN CORPUSCULAR VOLUME 84.5 fl (80.0-96.0); PLATELET COUNT, AUTOMATED 383 10^3/uL (150-450); RED BLOOD COUNT 4.46 10^6/uL (4.30-6.10); WHITE BLOOD COUNT 13.9 10^3/uL (4.0-10.0)
[2025-01-24 06:47] LABS: CALCIUM LEVEL 8.1 MG/DL (8.3-10.6); CREATININE FOR GFR 1.38 MG/DL (0.70-1.30); GLOMERULAR FILTRATION RATE 53.5 (>42); POTASSIUM SERUM 4.6 MMOL/L (3.5-5.1)
[2025-01-24] MEDS: INSULIN LISPRO (NovoLOG) PER UNIT SC SCH ×2 (09:11→09:12)
[2025-01-24 09:13] VITALS: BP 105/51
[2025-01-24 19:44] VITALS: BP 101/52; TEMP 98; O2SAT 95
[2025-01-25 04:00] VITALS: BP 126/66; TEMP 97.7; O2SAT 97
[2025-01-25 06:07] LABS: HEMATOCRIT 39.9 % (42.0-52.0); HEMOGLOBIN 11.9 g/dl (13.5-17.5); MEAN CORPUSCULAR HEMOGLOBIN 25.6 pg (27.0-33.0); MEAN CORPUSCULAR HGB CONC 29.8 g/dl (32.0-36.5); MEAN CORPUSCULAR VOLUME 85.8 fl (80.0-96.0); PLATELET COUNT, AUTOMATED 385 10^3/uL (150-450); RED BLOOD COUNT 4.65 10^6/uL (4.30-6.10); WHITE BLOOD COUNT 13.6 10^3/uL (4.0-10.0)
[2025-01-25 06:32] LABS: CALCIUM LEVEL 8.1 MG/DL (8.3-10.6); CREATININE FOR GFR 1.3 MG/DL (0.70-1.30); GLOMERULAR FILTRATION RATE 57.3 (>42); POTASSIUM SERUM 4.2 MMOL/L (3.5-5.1)
[2025-01-25 18:40] VITALS: O2SAT 88
[2025-01-25 18:41] VITALS: O2SAT 91
[2025-01-25 19:34] VITALS: BP 122/71; TEMP 97.5; O2SAT 93
[2025-01-26 03:57] VITALS: BP 115/68; TEMP 97.7; O2SAT 94
[2025-01-26 06:07] LABS: HEMATOCRIT 38.7 % (42.0-52.0); HEMOGLOBIN 11.7 g/dl (13.5-17.5); MEAN CORPUSCULAR HEMOGLOBIN 25.9 pg (27.0-33.0); MEAN CORPUSCULAR HGB CONC 30.2 g/dl (32.0-36.5); MEAN CORPUSCULAR VOLUME 85.6 fl (80.0-96.0); PLATELET COUNT, AUTOMATED 389 10^3/uL (150-450); RED BLOOD COUNT 4.52 10^6/uL (4.30-6.10); WHITE BLOOD COUNT 13.1 10^3/uL (4.0-10.0)
[2025-01-26] MEDS: metFORMIN (GLUCOPHAGE) 1000MG TABLET PO SCH (08:29)
[2025-01-26] MEDS: predniSONE 20 MG TAB PO SCH (08:29)
[2025-01-26 10:42] VITALS: O2SAT 92
[2025-01-26 21:00] VITALS: BP 110/67; TEMP 98.3; O2SAT 92
[2025-01-27 06:20] LABS: HEMATOCRIT 40.4 % (42.0-52.0); MEAN CORPUSCULAR HEMOGLOBIN 25.2 pg (27.0-33.0); MEAN CORPUSCULAR HGB CONC 29.7 g/dl (32.0-36.5); MEAN CORPUSCULAR VOLUME 84.9 fl (80.0-96.0); PLATELET COUNT, AUTOMATED 431 10^3/uL (150-450); RED BLOOD COUNT 4.76 10^6/uL (4.30-6.10); WHITE BLOOD COUNT 20.2 10^3/uL (4.0-10.0)
[2025-01-27] MEDS: LanTUS (INSULIN GLARGINE INJ) 1 UNITS/0.01 ML SC SCH (08:08)
[2025-01-28 04:00] VITALS: BP 109/66; TEMP 98; O2SAT 92
[2025-01-29 04:49] VITALS: BP 120/69; TEMP 97.8; O2SAT 93
[2025-01-30 03:44] VITALS: BP 101/63; TEMP 97.7; O2SAT 95
[2025-01-30 07:53] VITALS: BP 102/63
[2025-01-30] MEDS ORDERED: TIOT18INH INH (09:57)
[2025-01-30] MEDS ORDERED: IPRA0.00 INH (09:57)
== END 2025-01-30 13:26 | disposition home health service (06) | DRG 191 ==
LOC: M ED 14:42 → M ED INP 18:51 → M MSPAV 01-18 12:47
PROVIDERS: ADMIT Student in an Organized Health Care Education/Training Program; ATTEND Student in an Organized Health Care Education/Training Program
DX: J44.1 Chronic obstructive pulmonary disease with (acute) exacerbation (principal); J98.11 Atelectasis; J20.8 Acute bronchitis due to other specified organisms; E11.40 Type 2 diabetes mellitus with diabetic neuropathy, unspecified; I10 Essential (primary) hypertension; E11.65 Type 2 diabetes mellitus with hyperglycemia; E66.01 Morbid (severe) obesity due to excess calories; B37.2 Candidiasis of skin and nail; Z68.38 Body mass index [BMI] 38.0-38.9, adult; J10.1 Influenza due to other identified influenza virus with other respiratory manifestations; D72.829 Elevated white blood cell count, unspecified; Z85.828 Personal history of other malignant neoplasm of skin; Z86.711 Personal history of pulmonary embolism; Z79.899 Other long term (current) drug therapy; I95.9 Hypotension, unspecified; I87.8 Other specified disorders of veins; J45.909 Unspecified asthma, uncomplicated

== ENCOUNTER → 2025-03-18 | Outpatient (REF) | payer OTHER ==
[~2025-03-18] MED LIST: ATOR40TA75 PO; CARV12.5 PO; CHLO125TA PO; DOXA1TAB41 PO; GLIP10TA15 PO; IPRA0.00 INH; LISI10TA22 PO; METF10004 PO; SOTA80TA32 PO; TIOT18INH INH; XARE20TA PO
[2025-03-18 14:24] LABS: ALBUMIN 2.9 G/DL (3.2-5.2); BILIRUBIN,TOTAL 0.4 MG/DL (0.3-1.2); CALCIUM LEVEL 8.6 MG/DL (8.3-10.6); CHOLESTEROL RISK RATIO 3.94 (<5); CREATININE FOR GFR 1.23 MG/DL (0.70-1.30); GLOMERULAR FILTRATION RATE 61.2 (>42); HDL CHOLESTEROL 25.1 MG/DL (>40); LDL CHOLESTEROL 54.3 MG/DL (<100); NON-HDL-C 73.9 MG/DL; POTASSIUM SERUM 5.2 MMOL/L (3.5-5.1); TOTAL PROTEIN 7.4 G/DL (5.7-8.2)
[2025-03-18 15:09] LABS: HEMOGLOBIN A1c 7.6 % (4.0-6.0)
== END ==
LOC: M LABDRWAD 13:39
PROVIDERS: ATTEND Nurse Practitioner Family
DX: E11.65 Type 2 diabetes mellitus with hyperglycemia (principal); E78.5 Hyperlipidemia, unspecified; I10 Essential (primary) hypertension

== ENCOUNTER 2025-06-28 18:57 | Inpatient (IN) | payer OTHER ==
[~2025-06-28] VITALS: Ht 170.2 cm; Wt 120.1 kg
[2025-06-28 20:21] LABS: BASO # 0.0 10^3/uL (0.0-0.2); BASO % 0.1 % (0.0-1.0); EOS # 0.0 10^3/uL (0.0-0.5); EOS % 0.0 % (0.0-3.0); LYMPH # 1.3 10^3/uL (1.5-5.0); LYMPH % 4.8 % (24.0-44.0); MONO # 1.5 10^3/uL (0.0-0.8); MONO % 5.5 % (2.0-8.0); NEUTROPHILS # 24.3 10^3/uL (1.5-8.5); NEUTROPHILS % 87.9 % (36.0-66.0); PLATELET COUNT, AUTOMATED 474 10^3/uL (150-450)
[2025-06-28 20:34] LABS: INR 1.46
[2025-06-28] MEDS: NS (Normal Saline) 0.9% 1,000 ML IV ONE ×2 (20:41→23:11)
[2025-06-28] MEDS: PIPERACILLIN/TAZOBACTAM SOD 4.5 GM in DEXTROSE 5% (D5W) ADV/MINI-BAG 50 ML IV ONE (20:41)
[2025-06-28 20:46] LABS: KETONE, URINE AUTO RFX NEGATIVE (NEGATIVE); LEUKOCYTE ESTERASE UR AUTO RFX NEGATIVE (NEGATIVE); NITRITE, URINE AUTO RFX NEGATIVE (NEGATIVE); RBC, URINE AUTO RFX 100 /HPF (0-3); SQUAM EPITHELIAL CELL UR AURFX 1 /HPF (0-6); WBC, URINE AUTO RFX 5 /HPF (0-3)
[2025-06-28 20:49] LABS: CK-MB VALUE MASS 1.7 NG/ML (<3.6)
[2025-06-28 20:51] LABS: CPK CREATINE PHOSPHOKINASE 59 U/L (46-171); MB/CK RELATIVE INDEX 2.88 (< OR =4)
[2025-06-28 20:52] LABS: ALT/SGPT 79 U/L (7.0-40); AST/SGOT 53 U/L (<34); CALCIUM LEVEL 7.8 MG/DL (8.3-10.6); CARBON DIOXIDE LEVEL 16 MMOL/L (20-31); CHLORIDE LEVEL 101 MMOL/L (98-107); CREATININE FOR GFR 4.27 MG/DL (0.70-1.30); GLOMERULAR FILTRATION RATE 13.8 (>42); POTASSIUM SERUM 5.2 MMOL/L (3.5-5.1); SODIUM LEVEL 132 MMOL/L (136-145)
[2025-06-28] MEDS: CALCIUM GLUCONATE 1,000 MG in DEXTROSE 5% (D5W) MINI-BAG PLU 100 ML IV ONE (23:11)
[2025-06-28] MEDS: DEXTROSE 50% 50 ML SYRINGE IV STA (23:11)
[2025-06-28] MEDS: HumuLIN R (REGULAR) INSULIN (NovoLIN R) **100 U/ML** PER UNIT IV ONE (23:14)
[2025-06-28] MEDS ORDERED: VANCOMYCIN HCL 1,000 MG, VIAL MATE ADAPTER 1 EACH in NS 250 ML IV ONE (23:55)
[2025-06-29] VITALS (51 sets, daily range): BP systolic 79–153; BP diastolic 38–80; TEMP 97–97.8; O2SAT 87–100
[2025-06-29] MEDS ORDERED: HEPARIN SOD 5000 UNITS/ML 1 ML VIAL/SYRINGE SC SCH (01:40)
[2025-06-29] MEDS: VANCOMYCIN HCL 2,000 MG, VIAL MATE ADAPTER 1 EACH in NS 500 ML IV ONE (03:32)
[2025-06-29] MEDS: [UNRECOGNIZED DRUG - OTHER] IV ONE (03:32)
[2025-06-29] MEDS: NS 0.9% IV ONE (03:32)
[2025-06-29] MEDS ORDERED: GLUCOSE 4 GM CHEW PO PRN (04:10)
[2025-06-29] MEDS ORDERED: GLUCAGON INJ 1 MG VIAL SC PRN (04:10)
[2025-06-29] MEDS ORDERED: DEXTROSE 50% 50 ML SYRINGE IV PRN (04:10)
[2025-06-29] MEDS ORDERED: VANCOMYCIN INTERMITTENT/PULSE DOSING BY CLINICAL PHARMACIST PER DOSING PROTOCOL XX SCH (06:00)
[2025-06-29] MEDS ORDERED: TIOT18CA INH (06:06)
[2025-06-29] MEDS ORDERED: SOLI1INJ SC (06:06)
[2025-06-29] MEDS ORDERED: HOME MED LIST COMPLETE! XX SCH (06:20)
[2025-06-29] MEDS: NS (Normal Saline) 0.9% 1,000 ML IV SCH (06:23)
[2025-06-29] MEDS: CLINDAMYCIN 600 MG in IV 1 EA IV SCH (06:23)
[2025-06-29 06:37] LABS: PLATELET COUNT, AUTOMATED 478 10^3/uL (150-450)
[2025-06-29] MEDS: INSULIN LISPRO (NovoLOG) PER UNIT SC SCH ×2 (07:30→21:04)
[2025-06-29 07:36] LABS: ALT/SGPT 61.0 U/L (7.0-40); AST/SGOT 38.0 U/L (<34); CALCIUM LEVEL 6.9 MG/DL (8.3-10.6); CARBON DIOXIDE LEVEL 17.0 MMOL/L (20-31); CHLORIDE LEVEL 105.0 MMOL/L (98-107); CREATININE FOR GFR 4.33 MG/DL (0.70-1.30); GLOMERULAR FILTRATION RATE 13.5 (>42); MAGNESIUM LEVEL 1.2 MG/DL (1.8-2.4); POTASSIUM SERUM 4.9 MMOL/L (3.5-5.1); SODIUM LEVEL 136.0 MMOL/L (136-145)
[2025-06-29] MEDS: PIPERACILLIN/TAZOBACTAM SOD 4.5 GM in DEXTROSE 5% (D5W) ADV/MINI-BAG 50 ML IV SCH (08:08)
[2025-06-29] MEDS ORDERED: KETAMINE HCL 200 MG/20 ML VIAL As Ordered ONE (08:17)
[2025-06-29] MEDS ORDERED: LIDOCAINE 2% 100 MG/5 ML SDV (FOR ANES.) As Ordered ONE (08:17)
[2025-06-29] MEDS: dexAMETHasone 4 MG/ML 1 ML VIAL As Ordered ONE (08:25)
[2025-06-29] MEDS: GENTAMICIN SULF 80 MG/2 ML VIAL As Ordered ONE (08:25)
[2025-06-29] MEDS: LIDOCAINE 2% MDV 20 ML VIAL As Ordered ONE (08:48)
[2025-06-29] MEDS ORDERED: PHENYLephrine 500MCG 5ML (100MCG/ML) SYRINGE As Ordered ONE (09:14)
[2025-06-29] MEDS ORDERED: VASOPRESSIN INJ 20UNITS/ML 1ML VIAL As Ordered ONE (09:19)
[2025-06-29] MEDS: TRANEXAMIC ACID 100 MG/ML 10ML VIAL As Ordered ONE (10:07)
[2025-06-29] MEDS ORDERED: ACETAMINOPHEN 1000MG/100ML IV BAG As Ordered ONE (10:46)
[2025-06-29] MEDS ORDERED: VASOPRESSIN IN 0.9 % NACL 20UNIT/100ML INFUS.BTL As Ordered ONE (11:49)
[2025-06-29] MEDS ORDERED: NOREPINEPHRINE 4 MG IN D5W 250 ML IVBAG (16 MCG/ML) As Ordered ONE (11:50)
[2025-06-29] MEDS: NOREPINEPHRINE 4MG IN D5 250ML 4 MG in IV 1 EA IV SCH (11:59)
[2025-06-29] MEDS: VASOPRESSIN IN 0.9 % NACL 20 UNIT in IV 1 EA IV SCH (12:00)
[2025-06-29] MEDS: NS 500 ML IV ONE ×3 (12:00→12:45)
[2025-06-29] MEDS: NS (Normal Saline) 0.9% 1,000 ML IV ONE (13:00)
[2025-06-29 13:38] LABS: ABG BASE EXCESS -15.1 (-2.0-2.0); ABG HCO3 13.1 MMOL/L (22.0-26.0); ABG O2 SATURATION 99.1 % (95.0-99.0); ABG PARTIAL PRESSURE CO2 40.3 mmHg (35.0-45.0); ABG PARTIAL PRESSURE O2 144.6 mmHg (75.0-100.0); ABG STANDARD HCO3 12.6 MMOL/L. (22.0-26.0); ABG TOTAL CO2 14.3 MMOL/L (23.0-31.0)
[2025-06-29 13:39] LABS: ABG pH (ARTERIAL) 7.129 UNITS (7.350-7.450)
[2025-06-29] MEDS: MAG SULF 1GM/100ML (MAG RUN) 1 GM in IV 1 EA IV SCH ×2 (14:19→15:25)
[2025-06-29 14:58] LABS: VENOUS BASE EXCESS -16.5 (-2.0-2.0); VENOUS HCO3 11.8 MMOL/L (23.0-27.0); VENOUS O2 SATURATION 98.5 % (60.0-80.0); VENOUS PARTIAL PRESSURE CO2 38.5 mmHg (38.0-50.0); VENOUS PARTIAL PRESSURE O2 162.9 mmHg (30.0-50.0); VENOUS PH 7.105 UNITS (7.330-7.430); VENOUS STANDARD HCO3 11.5 MMOL/L; VENOUS TOTAL CO2 13.0 MMOL/L (24.0-28.0)
[2025-06-29 15:05] LABS: PLATELET COUNT, AUTOMATED 456 10^3/uL (150-450)
[2025-06-29] MEDS: HYDROCORTISONE 100 MG/2 ML VIAL IV ONE (15:24)
[2025-06-29 15:42] LABS: ALT/SGPT 53.0 U/L (7.0-40); AST/SGOT 35.0 U/L (<34); CALCIUM LEVEL 6.1 MG/DL (8.3-10.6); CARBON DIOXIDE LEVEL 14.0 MMOL/L (20-31); CHLORIDE LEVEL 108.0 MMOL/L (98-107); CREATININE FOR GFR 3.89 MG/DL (0.70-1.30); GLOMERULAR FILTRATION RATE 15.4 (>42); MAGNESIUM LEVEL 1.6 MG/DL (1.8-2.4); PHOSPHORUS LEVEL 4.7 MG/DL (2.4-5.1); POTASSIUM SERUM 5.5 MMOL/L (3.5-5.1); SODIUM LEVEL 135.0 MMOL/L (136-145)
[2025-06-29 16:27] LABS: LYMPHOCYTES 3 % (16-44); MONOCYTES 2 % (0-5); NEUTROPHILS 93 % (28-66)
[2025-06-29 16:28] LABS: PLATELET ESTIMATE INCREASED (NORMAL)
[2025-06-29] MEDS ORDERED: SODIUM BICARBONATE 8.4% INJ 50ML SYRINGE As Ordered ONE (16:35)
[2025-06-29] MEDS: DEXTROSE 50% 50 ML SYRINGE IV STA (16:38)
[2025-06-29] MEDS: HumuLIN R (REGULAR) INSULIN (NovoLIN R) **100 U/ML** PER UNIT IV STA (16:38)
[2025-06-29] MEDS: SODIUM BICARBONATE 8.4% INJ 50ML SYRINGE IV STA (16:39)
[2025-06-29] MEDS: CALCIUM GLUCONATE 1,000 MG in DEXTROSE 5% (D5W) MINI-BAG PLU 100 ML IV ONE (16:39)
[2025-06-29] MEDS ORDERED: MAG SULF 1GM/100ML (MAG RUN) 1 GM in IV 1 EA IV ONE (17:00)
[2025-06-29] MEDS: PATIROMER SORBITEX CALCIUM 8.4GM POWDER PACKET PO SCH (17:51)
[2025-06-29] MEDS: SODIUM BICARBONATE 150 MEQ in STERILE WATER LITER BAG 1,000 ML IV SCH (17:52)
[2025-06-29] MEDS: MORPHINE 2 MG/ML 1 ML VIAL IV PRN (17:55)
[2025-06-29] MEDS: VANCOMYCIN HCL 500 MG in DEXTROSE 5% (D5W) MINI-BAG PLU 100 ML IV ONE (19:06)
[2025-06-29 22:24] LABS: BASO # 0.0 10^3/uL (0.0-0.2); BASO % 0.1 % (0.0-1.0); EOS # 0.0 10^3/uL (0.0-0.5); EOS % 0.0 % (0.0-3.0); LYMPH # 1.0 10^3/uL (1.5-5.0); LYMPH % 4.8 % (24.0-44.0); MONO # 0.7 10^3/uL (0.0-0.8); MONO % 3.4 % (2.0-8.0); NEUTROPHILS # 18.1 10^3/uL (1.5-8.5); NEUTROPHILS % 90.4 % (36.0-66.0); PLATELET COUNT, AUTOMATED 397 10^3/uL (150-450)
[2025-06-29 22:42] LABS: ALT/SGPT 46.0 U/L (7.0-40); AST/SGOT 35.0 U/L (<34); CALCIUM LEVEL 6.2 MG/DL (8.3-10.6); CARBON DIOXIDE LEVEL 17.0 MMOL/L (20-31); CHLORIDE LEVEL 103.0 MMOL/L (98-107); CREATININE FOR GFR 3.66 MG/DL (0.70-1.30); GLOMERULAR FILTRATION RATE 16.5 (>42); MAGNESIUM LEVEL 1.4 MG/DL (1.8-2.4); POTASSIUM SERUM 4.9 MMOL/L (3.5-5.1); SODIUM LEVEL 133.0 MMOL/L (136-145)
[2025-06-30] VITALS (54 sets, daily range): BP systolic 95–144; BP diastolic 43–110; TEMP 97.3–97.8; O2SAT 92–100
[2025-06-30] MEDS: NS (Normal Saline) 0.9% 1,000 ML IV SCH (00:06)
[2025-06-30] MEDS: MAG SULF 1GM/100ML (MAG RUN) 1 GM in IV 1 EA IV SCH ×2 (00:07→11:15)
[2025-06-30 08:55] LABS: BASO # 0.0 10^3/uL (0.0-0.2); BASO % 0.1 % (0.0-1.0); EOS # 0.0 10^3/uL (0.0-0.5); EOS % 0.1 % (0.0-3.0); LYMPH # 1.8 10^3/uL (1.5-5.0); LYMPH % 8.8 % (24.0-44.0); MONO # 0.7 10^3/uL (0.0-0.8); MONO % 3.3 % (2.0-8.0); NEUTROPHILS # 17.2 10^3/uL (1.5-8.5); NEUTROPHILS % 86.5 % (36.0-66.0); PLATELET COUNT, AUTOMATED 417 10^3/uL (150-450)
[2025-06-30 09:32] LABS: ALT/SGPT 42.0 U/L (7.0-40); AST/SGOT 36.0 U/L (<34); CALCIUM LEVEL 6.3 MG/DL (8.3-10.6); CARBON DIOXIDE LEVEL 22.0 MMOL/L (20-31); CHLORIDE LEVEL 101.0 MMOL/L (98-107); CK-MB VALUE MASS 3.9 NG/ML (<3.6); CPK CREATINE PHOSPHOKINASE 397.0 U/L (46-171); CREATININE FOR GFR 3.33 MG/DL (0.70-1.30); GLOMERULAR FILTRATION RATE 18.5 (>42); MAGNESIUM LEVEL 1.7 MG/DL (1.8-2.4); MB/CK RELATIVE INDEX 0.98 (< OR =4); PHOSPHORUS LEVEL 4.3 MG/DL (2.4-5.1); POTASSIUM SERUM 4.4 MMOL/L (3.5-5.1); SODIUM LEVEL 135.0 MMOL/L (136-145)
[2025-06-30] MEDS: VANCOMYCIN HCL 1,000 MG, VIAL MATE ADAPTER 1 EACH in NS 250 ML IV SCH (10:01)
[2025-06-30] MEDS: PANTOPRAZOLE 40MG VIAL IV SCH (10:02)
[2025-06-30] MEDS ORDERED: VANCOMYCIN HCL 750 MG, VIAL MATE ADAPTER 1 EACH in NS 250 ML IV SCH (11:00)
[2025-06-30] MEDS: HYDROCORTISONE 100 MG/2 ML VIAL IV SCH (11:14)
[2025-06-30] MEDS: LanTUS (INSULIN GLARGINE INJ) 1 UNITS/0.01 ML SC SCH (11:14)
[2025-06-30] MEDS: CLINDAMYCIN 900 MG in IV 1 EA IV SCH (12:13)
[2025-07-01] VITALS (18 sets, daily range): BP systolic 87–120; BP diastolic 47–76; TEMP 97–98.2; O2SAT 82–99
[2025-07-01 04:15] LABS: BASO # 0.0 10^3/uL (0.0-0.2); BASO % 0.1 % (0.0-1.0); EOS # 0.0 10^3/uL (0.0-0.5); EOS % 0.0 % (0.0-3.0); LYMPH # 1.5 10^3/uL (1.5-5.0); LYMPH % 8.9 % (24.0-44.0); MONO # 0.8 10^3/uL (0.0-0.8); MONO % 4.8 % (2.0-8.0); NEUTROPHILS # 14.8 10^3/uL (1.5-8.5); NEUTROPHILS % 85.2 % (36.0-66.0); PLATELET COUNT, AUTOMATED 434 10^3/uL (150-450)
[2025-07-01 04:42] LABS: CALCIUM LEVEL 6.3 MG/DL (8.3-10.6); CARBON DIOXIDE LEVEL 23.0 MMOL/L (20-31); CHLORIDE LEVEL 104.0 MMOL/L (98-107); CREATININE FOR GFR 2.9 MG/DL (0.70-1.30); GLOMERULAR FILTRATION RATE 21.9 (>42); POTASSIUM SERUM 4.3 MMOL/L (3.5-5.1); SODIUM LEVEL 138.0 MMOL/L (136-145)
[2025-07-01 07:47] LABS: MAGNESIUM LEVEL 2.0 MG/DL (1.8-2.4); PHOSPHORUS LEVEL 4.5 MG/DL (2.4-5.1)
[2025-07-01 08:46] LABS: C REACTIVE PROTEIN QUANTITATIV 10.03 MG/DL (<1.0)
[2025-07-01] MEDS: FUROSEMIDE 100 MG/10 ML VIAL IV ONE (08:59)
[2025-07-01] MEDS: cefTRIAXone SOD 1 GM in DEXTROSE 5% (D5W) ADV/MINI-BAG 50 ML IV SCH (09:00)
[2025-07-01] MEDS: HEPARIN SOD 5000 UNITS/ML 1 ML VIAL/SYRINGE SQ SCH (12:56)
[2025-07-02] VITALS (9 sets, daily range): BP systolic 113–144; BP diastolic 58–77; TEMP 97.6–98.2; O2SAT 89–96
[2025-07-02 05:14] LABS: BASO # 0.0 10^3/uL (0.0-0.2); BASO % 0.2 % (0.0-1.0); EOS # 0.2 10^3/uL (0.0-0.5); EOS % 1.3 % (0.0-3.0); LYMPH # 2.9 10^3/uL (1.5-5.0); LYMPH % 21.6 % (24.0-44.0); MONO # 1.1 10^3/uL (0.0-0.8); MONO % 7.9 % (2.0-8.0); NEUTROPHILS # 9.1 10^3/uL (1.5-8.5); NEUTROPHILS % 67.2 % (36.0-66.0); PLATELET COUNT, AUTOMATED 451 10^3/uL (150-450)
[2025-07-02 05:30] LABS: CALCIUM LEVEL 7.2 MG/DL (8.3-10.6); CARBON DIOXIDE LEVEL 26.0 MMOL/L (20-31); CHLORIDE LEVEL 104.0 MMOL/L (98-107); CREATININE FOR GFR 2.17 MG/DL (0.70-1.30); GLOMERULAR FILTRATION RATE 31.0 (>42); MAGNESIUM LEVEL 1.6 MG/DL (1.8-2.4); POTASSIUM SERUM 4.0 MMOL/L (3.5-5.1); SODIUM LEVEL 141.0 MMOL/L (136-145)
[2025-07-02] MEDS: MAG SULF 1GM/100ML (MAG RUN) 1 GM in IV 1 EA IV SCH (06:21)
[2025-07-02] MEDS: PERCOCET 5MG/325MG TAB PO PRN (07:54)
[2025-07-02] MEDS: NYSTATIN 100,000 UNITS/GM TOPICAL PWD 15 GM TOP SCH (12:04)
[2025-07-03] VITALS (9 sets, daily range): BP systolic 138–187; BP diastolic 67–79; TEMP 97.3–98.2; O2SAT 94–98
[2025-07-03 04:39] LABS: BASO # 0.1 10^3/uL (0.0-0.2); BASO % 0.4 % (0.0-1.0); EOS # 0.3 10^3/uL (0.0-0.5); EOS % 2.5 % (0.0-3.0); LYMPH # 2.3 10^3/uL (1.5-5.0); LYMPH % 16.9 % (24.0-44.0); MONO # 1.0 10^3/uL (0.0-0.8); MONO % 7.4 % (2.0-8.0); NEUTROPHILS # 9.7 10^3/uL (1.5-8.5); NEUTROPHILS % 69.7 % (36.0-66.0); PLATELET COUNT, AUTOMATED 460 10^3/uL (150-450)
[2025-07-03 05:00] LABS: CALCIUM LEVEL 7.6 MG/DL (8.3-10.6); CARBON DIOXIDE LEVEL 32.0 MMOL/L (20-31); CHLORIDE LEVEL 101.0 MMOL/L (98-107); CREATININE FOR GFR 1.4 MG/DL (0.70-1.30); GLOMERULAR FILTRATION RATE 52.4 (>42); MAGNESIUM LEVEL 1.4 MG/DL (1.8-2.4); POTASSIUM SERUM 4.2 MMOL/L (3.5-5.1); SODIUM LEVEL 142.0 MMOL/L (136-145)
[2025-07-03] MEDS: hydrALAZINE 20 MG/ML 1 ML VIAL IV ONE (05:32)
[2025-07-03] MEDS: MAG SULF 1GM/100ML (MAG RUN) 1 GM in IV 1 EA IV SCH (05:33)
[2025-07-04] VITALS (8 sets, daily range): BP systolic 99–142; BP diastolic 57–86; TEMP 97.3–98.1; O2SAT 96–99
[2025-07-04 04:35] LABS: BASO # 0.1 10^3/uL (0.0-0.2); BASO % 0.4 % (0.0-1.0); EOS # 0.7 10^3/uL (0.0-0.5); EOS % 4.3 % (0.0-3.0); LYMPH # 3.1 10^3/uL (1.5-5.0); LYMPH % 19.6 % (24.0-44.0); MONO # 1.1 10^3/uL (0.0-0.8); MONO % 6.8 % (2.0-8.0); NEUTROPHILS # 10.3 10^3/uL (1.5-8.5); NEUTROPHILS % 65.0 % (36.0-66.0); PLATELET COUNT, AUTOMATED 422 10^3/uL (150-450)
[2025-07-04 04:56] LABS: CALCIUM LEVEL 7.7 MG/DL (8.3-10.6); CARBON DIOXIDE LEVEL 35.0 MMOL/L (20-31); CHLORIDE LEVEL 99.0 MMOL/L (98-107); CREATININE FOR GFR 1.1 MG/DL (0.70-1.30); GLOMERULAR FILTRATION RATE 70.0 (>42); MAGNESIUM LEVEL 1.5 MG/DL (1.8-2.4); POTASSIUM SERUM 4.1 MMOL/L (3.5-5.1); SODIUM LEVEL 140.0 MMOL/L (136-145)
[2025-07-04] MEDS: MAG SULF 1GM/100ML (MAG RUN) 1 GM in IV 1 EA IV SCH (05:57)
[2025-07-04] MEDS: INSULIN GLARGINE-YFGN 1 UNITS/0.01 ML SC SCH (07:28)
[2025-07-04] MEDS: METOPROLOL 5 MG/5 ML VIAL IV SCH (07:52)
[2025-07-04] MEDS ORDERED: METOPROLOL 5 MG/5 ML VIAL As Ordered ONE (13:03)
[2025-07-04] MEDS: DOXAZOSIN MESYLATE 1 MG TAB PO SCH (14:26)
[2025-07-04] MEDS: SOTALOL HCL 80 MG TAB PO SCH (14:26)
[2025-07-04] MEDS: METOPROLOL TART 50 MG TAB PO SCH (14:26)
[2025-07-04] MEDS: RIVAROXABAN 20MG TAB PO SCH (18:07)
[2025-07-04] MEDS: ATORVASTATIN 20 MG TAB PO SCH (20:05)
[2025-07-05] VITALS (9 sets, daily range): BP systolic 87–120; BP diastolic 52–60; TEMP 97–98; O2SAT 85–99
[2025-07-05 05:30] LABS: BASO # 0.1 10^3/uL (0.0-0.2); BASO % 0.3 % (0.0-1.0); EOS # 0.7 10^3/uL (0.0-0.5); EOS % 3.3 % (0.0-3.0); LYMPH # 4.2 10^3/uL (1.5-5.0); LYMPH % 20.7 % (24.0-44.0); MONO # 1.2 10^3/uL (0.0-0.8); MONO % 5.9 % (2.0-8.0); NEUTROPHILS # 13.5 10^3/uL (1.5-8.5); NEUTROPHILS % 66.8 % (36.0-66.0); PLATELET COUNT, AUTOMATED 454 10^3/uL (150-450)
[2025-07-05 05:54] LABS: CALCIUM LEVEL 7.8 MG/DL (8.3-10.6); CARBON DIOXIDE LEVEL 34.0 MMOL/L (20-31); CHLORIDE LEVEL 94.0 MMOL/L (98-107); CREATININE FOR GFR 1.05 MG/DL (0.70-1.30); GLOMERULAR FILTRATION RATE 74.0 (>42); MAGNESIUM LEVEL 1.6 MG/DL (1.8-2.4); POTASSIUM SERUM 4.4 MMOL/L (3.5-5.1); SODIUM LEVEL 136.0 MMOL/L (136-145)
[2025-07-05] MEDS ORDERED: ONDANSETRON 4MG 2ML VIAL IV PRN (08:15)
[2025-07-05 09:16] LABS: C REACTIVE PROTEIN QUANTITATIV 3.48 MG/DL (<1.0)
[2025-07-06] VITALS (26 sets, daily range): BP systolic 80–120; BP diastolic 47–58; TEMP 97–98.4; O2SAT 92–99
[2025-07-06 05:22] LABS: BASO # 0.0 10^3/uL (0.0-0.2); BASO % 0.2 % (0.0-1.0); EOS # 0.6 10^3/uL (0.0-0.5); EOS % 3.9 % (0.0-3.0); LYMPH # 4.1 10^3/uL (1.5-5.0); LYMPH % 25.4 % (24.0-44.0); MONO # 1.0 10^3/uL (0.0-0.8); MONO % 5.9 % (2.0-8.0); NEUTROPHILS # 10.0 10^3/uL (1.5-8.5); NEUTROPHILS % 61.9 % (36.0-66.0); PLATELET COUNT, AUTOMATED 407 10^3/uL (150-450)
[2025-07-06 05:49] LABS: CALCIUM LEVEL 7.8 MG/DL (8.3-10.6); CARBON DIOXIDE LEVEL 33.0 MMOL/L (20-31); CHLORIDE LEVEL 97.0 MMOL/L (98-107); CREATININE FOR GFR 1.15 MG/DL (0.70-1.30); GLOMERULAR FILTRATION RATE 66.4 (>42); MAGNESIUM LEVEL 1.4 MG/DL (1.8-2.4); POTASSIUM SERUM 4.3 MMOL/L (3.5-5.1); SODIUM LEVEL 137.0 MMOL/L (136-145)
[2025-07-06] MEDS: MAG SULF 1GM/100ML (MAG RUN) 1 GM in IV 1 EA IV SCH (06:25)
[2025-07-06] MEDS ORDERED: ONDANSETRON 4MG 2ML VIAL As Ordered ONE (07:31)
[2025-07-06] MEDS ORDERED: MIDAZOLAM INJ 2 MG/2 ML VIAL As Ordered ONE (08:05)
[2025-07-06] MEDS ORDERED: CALCIUM CHLORIDE 10% 1 GM/10 ML SYR As Ordered ONE (09:03)
[2025-07-06] MEDS ORDERED: MORPHINE 2 MG/ML 1 ML VIAL IV PRN (09:20)
[2025-07-06] MEDS ORDERED: HYDROMORPHONE HCL 0.5 MG/0.5 ML SYRINGE IV PRN (09:20)
[2025-07-06] MEDS: PHENYLephrine 500MCG 5ML (100MCG/ML) SYRINGE IV PRN (09:57)
[2025-07-06] MEDS: LACTATED RINGER'S 1000 ML IV ONE (10:20)
[2025-07-06] MEDS: MAGNESIUM OXIDE 400 MG TAB PO SCH (11:32)
[2025-07-06] MEDS: NS 500 ML IV ONE ×2 (15:05→16:45)
[2025-07-06] MEDS: RIVAROXABAN 20MG TAB PO SCH (18:23)
[2025-07-07] VITALS (9 sets, daily range): BP systolic 96–109; BP diastolic 55–64; TEMP 96.8–98.3; O2SAT 96–99
[2025-07-07 05:46] LABS: BASO # 0.0 10^3/uL (0.0-0.2); BASO % 0.3 % (0.0-1.0); EOS # 0.5 10^3/uL (0.0-0.5); EOS % 3.3 % (0.0-3.0); LYMPH # 3.3 10^3/uL (1.5-5.0); LYMPH % 22.6 % (24.0-44.0); MONO # 0.8 10^3/uL (0.0-0.8); MONO % 5.5 % (2.0-8.0); NEUTROPHILS # 9.7 10^3/uL (1.5-8.5); NEUTROPHILS % 66.4 % (36.0-66.0); PLATELET COUNT, AUTOMATED 371 10^3/uL (150-450)
[2025-07-07 06:09] LABS: C REACTIVE PROTEIN QUANTITATIV 2.51 MG/DL (<1.0); CALCIUM LEVEL 8.0 MG/DL (8.3-10.6); CARBON DIOXIDE LEVEL 34.0 MMOL/L (20-31); CHLORIDE LEVEL 98.0 MMOL/L (98-107); CREATININE FOR GFR 1.26 MG/DL (0.70-1.30); GLOMERULAR FILTRATION RATE 59.5 (>42); MAGNESIUM LEVEL 1.7 MG/DL (1.8-2.4); POTASSIUM SERUM 4.1 MMOL/L (3.5-5.1); SODIUM LEVEL 138.0 MMOL/L (136-145)
[2025-07-08] VITALS (8 sets, daily range): BP systolic 86–129; BP diastolic 50–74; TEMP 97.4–98.8; O2SAT 79–99
[2025-07-08 05:46] LABS: BASO # 0.0 10^3/uL (0.0-0.2); BASO % 0.2 % (0.0-1.0); EOS # 0.5 10^3/uL (0.0-0.5); EOS % 3.3 % (0.0-3.0); LYMPH # 3.9 10^3/uL (1.5-5.0); LYMPH % 28.0 % (24.0-44.0); MONO # 0.9 10^3/uL (0.0-0.8); MONO % 6.3 % (2.0-8.0); NEUTROPHILS # 8.4 10^3/uL (1.5-8.5); NEUTROPHILS % 61.0 % (36.0-66.0); PLATELET COUNT, AUTOMATED 339 10^3/uL (150-450)
[2025-07-08 06:14] LABS: CALCIUM LEVEL 7.7 MG/DL (8.3-10.6); CARBON DIOXIDE LEVEL 35.0 MMOL/L (20-31); CHLORIDE LEVEL 98.0 MMOL/L (98-107); CREATININE FOR GFR 1.19 MG/DL (0.70-1.30); GLOMERULAR FILTRATION RATE 63.7 (>42); MAGNESIUM LEVEL 1.5 MG/DL (1.8-2.4); POTASSIUM SERUM 4.7 MMOL/L (3.5-5.1); SODIUM LEVEL 139.0 MMOL/L (136-145)
[2025-07-08] MEDS: MAG SULF 1GM/100ML (MAG RUN) 1 GM in IV 1 EA IV SCH (06:49)
[2025-07-08] MEDS: INSULIN LISPRO (NovoLOG) PER UNIT SC SCH (07:46)
[2025-07-08] MEDS: INSULIN GLARGINE-YFGN 1 UNITS/0.01 ML SC SCH (07:47)
[2025-07-09] VITALS: BP 114/54; TEMP 97.6; O2SAT 99
[2025-07-09 04:00] VITALS: BP 111/55; TEMP 97.9; O2SAT 94
[2025-07-09 04:59] LABS: BASO # 0.0 10^3/uL (0.0-0.2); BASO % 0.3 % (0.0-1.0); EOS # 0.5 10^3/uL (0.0-0.5); EOS % 4.4 % (0.0-3.0); LYMPH # 2.9 10^3/uL (1.5-5.0); LYMPH % 23.9 % (24.0-44.0); MONO # 0.7 10^3/uL (0.0-0.8); MONO % 5.5 % (2.0-8.0); NEUTROPHILS # 7.9 10^3/uL (1.5-8.5); NEUTROPHILS % 64.8 % (36.0-66.0); PLATELET COUNT, AUTOMATED 323 10^3/uL (150-450)
[2025-07-09 05:17] LABS: ESTIMATED AVERAGE GLUCOSE 171.0 MG/DL (60-110)
[2025-07-09 05:31] LABS: CALCIUM LEVEL 7.8 MG/DL (8.3-10.6); CARBON DIOXIDE LEVEL 31.0 MMOL/L (20-31); CHLORIDE LEVEL 102.0 MMOL/L (98-107); CREATININE FOR GFR 1.07 MG/DL (0.70-1.30); GLOMERULAR FILTRATION RATE 72.4 (>42); POTASSIUM SERUM 4.9 MMOL/L (3.5-5.1); SODIUM LEVEL 140.0 MMOL/L (136-145)
[2025-07-09] MEDS: INSULIN LISPRO (NovoLOG) PER UNIT SC SCH (07:57)
[2025-07-09 08:00] VITALS: BP 138/84; TEMP 98.2; O2SAT 98
[2025-07-09] MEDS: INSULIN GLARGINE-YFGN 1 UNITS/0.01 ML SC SCH (08:25)
[2025-07-09 12:00] VITALS: BP 108/53; TEMP 98.7; O2SAT 92
[2025-07-09 16:00] VITALS: BP 127/58; TEMP 97.9; O2SAT 90
[2025-07-09 20:06] VITALS: BP 130/59; TEMP 97.3; O2SAT 95
[2025-07-10 05:35] VITALS: BP 100/54; TEMP 97.3; O2SAT 95
[2025-07-10 06:10] LABS: BASO # 0.0 10^3/uL (0.0-0.2); BASO % 0.2 % (0.0-1.0); EOS # 0.6 10^3/uL (0.0-0.5); EOS % 4.8 % (0.0-3.0); LYMPH # 3.3 10^3/uL (1.5-5.0); LYMPH % 25.4 % (24.0-44.0); MONO # 0.7 10^3/uL (0.0-0.8); MONO % 5.1 % (2.0-8.0); NEUTROPHILS # 8.3 10^3/uL (1.5-8.5); NEUTROPHILS % 63.8 % (36.0-66.0); PLATELET COUNT, AUTOMATED 332 10^3/uL (150-450)
[2025-07-10 06:42] LABS: CALCIUM LEVEL 7.7 MG/DL (8.3-10.6); CARBON DIOXIDE LEVEL 34.0 MMOL/L (20-31); CHLORIDE LEVEL 102.0 MMOL/L (98-107); CREATININE FOR GFR 1.09 MG/DL (0.70-1.30); GLOMERULAR FILTRATION RATE 70.8 (>42); MAGNESIUM LEVEL 1.7 MG/DL (1.8-2.4); POTASSIUM SERUM 4.5 MMOL/L (3.5-5.1); SODIUM LEVEL 142.0 MMOL/L (136-145)
[2025-07-10] MEDS: LR 1,000 ML IV SCH (08:06)
[2025-07-10 12:00] VITALS: BP 117/56; TEMP 97.5; O2SAT 92
[2025-07-10] MEDS: MAGNESIUM OXIDE 400 MG TAB PO SCH (16:14)
[2025-07-10 19:52] VITALS: BP 120/59; TEMP 97.2; O2SAT 93
[2025-07-10 21:37] VITALS: O2SAT 92
[2025-07-10 21:39] VITALS: O2SAT 96
[2025-07-11] VITALS (7 sets, daily range): BP systolic 124–128; BP diastolic 56–64; TEMP 96.8–97.3; O2SAT 86–98
[2025-07-11 06:34] LABS: BASO # 0.1 10^3/uL (0.0-0.2); BASO % 0.4 % (0.0-1.0); EOS # 0.7 10^3/uL (0.0-0.5); EOS % 5.9 % (0.0-3.0); LYMPH # 3.8 10^3/uL (1.5-5.0); LYMPH % 30.9 % (24.0-44.0); MONO # 0.9 10^3/uL (0.0-0.8); MONO % 7.0 % (2.0-8.0); NEUTROPHILS # 6.8 10^3/uL (1.5-8.5); NEUTROPHILS % 55.3 % (36.0-66.0); PLATELET COUNT, AUTOMATED 365 10^3/uL (150-450)
[2025-07-11 07:11] LABS: CALCIUM LEVEL 7.7 MG/DL (8.3-10.6); CARBON DIOXIDE LEVEL 34.0 MMOL/L (20-31); CHLORIDE LEVEL 102.0 MMOL/L (98-107); CREATININE FOR GFR 1.06 MG/DL (0.70-1.30); GLOMERULAR FILTRATION RATE 73.2 (>42); MAGNESIUM LEVEL 1.7 MG/DL (1.8-2.4); POTASSIUM SERUM 4.7 MMOL/L (3.5-5.1); SODIUM LEVEL 141.0 MMOL/L (136-145)
[2025-07-11] MEDS: MAG SULF 1GM/100ML (MAG RUN) 1 GM in IV 1 EA IV SCH (09:41)
[2025-07-12 04:27] VITALS: BP 120/55; TEMP 97; O2SAT 95
[2025-07-12 07:15] LABS: CALCIUM LEVEL 7.9 MG/DL (8.3-10.6); CARBON DIOXIDE LEVEL 36.0 MMOL/L (20-31); CHLORIDE LEVEL 101.0 MMOL/L (98-107); CREATININE FOR GFR 0.97 MG/DL (0.70-1.30); GLOMERULAR FILTRATION RATE 81.4 (>42); MAGNESIUM LEVEL 1.8 MG/DL (1.8-2.4); POTASSIUM SERUM 4.6 MMOL/L (3.5-5.1); SODIUM LEVEL 142.0 MMOL/L (136-145)
[2025-07-12 18:37] VITALS: BP 138/63; TEMP 97; O2SAT 84
[2025-07-12 18:38] VITALS: O2SAT 65
[2025-07-12 20:25] VITALS: BP 105/53; TEMP 97; O2SAT 95
[2025-07-13 03:35] VITALS: BP 104/53; TEMP 97; O2SAT 98
[2025-07-13 07:18] LABS: CALCIUM LEVEL 8.0 MG/DL (8.3-10.6); CARBON DIOXIDE LEVEL 34.0 MMOL/L (20-31); CHLORIDE LEVEL 102.0 MMOL/L (98-107); CREATININE FOR GFR 1.06 MG/DL (0.70-1.30); GLOMERULAR FILTRATION RATE 73.2 (>42); MAGNESIUM LEVEL 2.1 MG/DL (1.8-2.4); POTASSIUM SERUM 5.0 MMOL/L (3.5-5.1); SODIUM LEVEL 140.0 MMOL/L (136-145)
[2025-07-13 09:32] LABS: BASO # 0.1 10^3/uL (0.0-0.2); BASO % 0.5 % (0.0-1.0); EOS # 0.8 10^3/uL (0.0-0.5); EOS % 6.3 % (0.0-3.0); LYMPH # 3.7 10^3/uL (1.5-5.0); LYMPH % 28.9 % (24.0-44.0); MONO # 0.8 10^3/uL (0.0-0.8); MONO % 6.5 % (2.0-8.0); NEUTROPHILS # 7.3 10^3/uL (1.5-8.5); NEUTROPHILS % 57.5 % (36.0-66.0); PLATELET COUNT, AUTOMATED 339 10^3/uL (150-450)
[2025-07-13] MEDS: SIMETHICONE 80MG CHEW TAB PO PRN (13:37)
[2025-07-13 21:45] VITALS: BP 109/53; TEMP 97.2; O2SAT 96
[2025-07-13 22:00] VITALS: BP 109/53; TEMP 97.2; O2SAT 96
[2025-07-13 22:47] VITALS: BP 109/53; TEMP 97.3; O2SAT 97
[2025-07-13 23:46] VITALS: BP 114/53; TEMP 97.3; O2SAT 97
[2025-07-14 00:16] VITALS: BP 114/54; TEMP 97.3; O2SAT 97
[2025-07-14 02:06] LABS: BASO # 0.1 10^3/uL (0.0-0.2); BASO % 0.4 % (0.0-1.0); EOS # 0.9 10^3/uL (0.0-0.5); EOS % 6.6 % (0.0-3.0); LYMPH # 4.0 10^3/uL (1.5-5.0); LYMPH % 28.6 % (24.0-44.0); MONO # 1.0 10^3/uL (0.0-0.8); MONO % 7.3 % (2.0-8.0); NEUTROPHILS # 7.9 10^3/uL (1.5-8.5); NEUTROPHILS % 56.7 % (36.0-66.0); PLATELET COUNT, AUTOMATED 301 10^3/uL (150-450)
[2025-07-14 03:25] VITALS: BP 115/53; TEMP 97.2; O2SAT 95
[2025-07-14 08:17] VITALS: BP 112/52
[2025-07-15 05:16] VITALS: BP 121/52; TEMP 97.5; O2SAT 97
[2025-07-15 06:22] LABS: BASO # 0.1 10^3/uL (0.0-0.2); BASO % 0.6 % (0.0-1.0); EOS # 0.9 10^3/uL (0.0-0.5); EOS % 8.7 % (0.0-3.0); LYMPH # 3.1 10^3/uL (1.5-5.0); LYMPH % 29.0 % (24.0-44.0); MONO # 0.7 10^3/uL (0.0-0.8); MONO % 6.9 % (2.0-8.0); NEUTROPHILS # 5.9 10^3/uL (1.5-8.5); NEUTROPHILS % 54.5 % (36.0-66.0); PLATELET COUNT, AUTOMATED 308 10^3/uL (150-450)
[2025-07-15 06:45] LABS: CALCIUM LEVEL 8.2 MG/DL (8.3-10.6); CARBON DIOXIDE LEVEL 35.0 MMOL/L (20-31); CHLORIDE LEVEL 102.0 MMOL/L (98-107); CREATININE FOR GFR 0.95 MG/DL (0.70-1.30); GLOMERULAR FILTRATION RATE 83.5 (>42); MAGNESIUM LEVEL 2.3 MG/DL (1.8-2.4); POTASSIUM SERUM 4.7 MMOL/L (3.5-5.1); SODIUM LEVEL 142.0 MMOL/L (136-145)
[2025-07-15 19:00] VITALS: O2SAT 94
[2025-07-16 00:45] VITALS: O2SAT 76
[2025-07-16 00:52] VITALS: O2SAT 96
[2025-07-16 05:38] VITALS: BP 136/62; TEMP 96.8; O2SAT 96
[2025-07-16] MEDS: ACETAMINOPHEN 500 MG TAB PO PRN (08:33)
[2025-07-17 04:42] VITALS: BP 104/57; TEMP 97.2; O2SAT 91
[2025-07-17 21:05] VITALS: BP 109/53
[2025-07-18 04:23] VITALS: BP 111/52; TEMP 97.7; O2SAT 92
[2025-07-18 11:13] LABS: PLATELET COUNT, AUTOMATED 347 10^3/uL (150-450)
[2025-07-18] MEDS: SIMETHICONE 80MG CHEW TAB PO SCH (11:51)
[2025-07-18 20:54] VITALS: BP 111/51; TEMP 97.9; O2SAT 93
[2025-07-18] MEDS: LanTUS (INSULIN GLARGINE INJ) 1 UNITS/0.01 ML SC SCH (20:57)
[2025-07-19 05:03] VITALS: BP 117/56; TEMP 98.6; O2SAT 95
[2025-07-19] MEDS: INSULIN LISPRO (NovoLOG) PER UNIT SC SCH (09:28)
[2025-07-20 05:47] VITALS: BP 128/59; TEMP 97.7; O2SAT 93
[2025-07-21 06:39] VITALS: BP 119/65; TEMP 97.9; O2SAT 95
[2025-07-22 03:50] VITALS: BP 120/58; TEMP 97.7; O2SAT 94
[2025-07-23 03:56] VITALS: BP 131/61; TEMP 97.5; O2SAT 98
[2025-07-24 06:12] VITALS: BP 119/59; TEMP 97.7; O2SAT 93
[2025-07-24 20:30] VITALS: BP 154/76; TEMP 97.2; O2SAT 95
[2025-07-26 06:35] VITALS: BP 127/58; TEMP 97.7; O2SAT 91
[2025-07-27 06:27] VITALS: BP 146/69; TEMP 98.1; O2SAT 92
[2025-07-27] MEDS: SIMETHICONE 80MG CHEW TAB PO PRN (12:50)
[2025-07-27] MEDS: MAGNESIUM OXIDE 400 MG TAB PO SCH (12:50)
[2025-07-28 03:49] VITALS: BP 125/59; TEMP 97.7; O2SAT 95
[2025-07-28 21:27] VITALS: BP 124/57
[2025-07-29 03:33] VITALS: BP 108/53; TEMP 98.1; O2SAT 97
[2025-07-29 08:57] VITALS: BP 177/92
[2025-07-29] MEDS ORDERED: INSULANT SC (11:36)
[2025-07-29] MEDS ORDERED: INSUHUMDS SC (11:36)
[2025-07-29] MEDS ORDERED: CARV6.25 PO (11:36)
[2025-07-29] MEDS ORDERED: MAGN400T33 PO (11:36)
== END 2025-07-29 12:03 | DRG 853 ==
LOC: EDBD 18:57 → M ED 18:57 → M ED INP 06-29 01:38 → M ICU 06-29 11:45 → M MSPAV 07-09 16:33
PROVIDERS: ADMIT Student in an Organized Health Care Education/Training Program; ATTEND Internal Medicine
PROC: 0Y6J0Z2 Detachment at Left Lower Leg, Mid, Open Approach (ICD-10-PCS; 2025-06-29)
PROC: 05HM33Z Insertion of Infusion Device into Right Internal Jugular Vein, Percutaneous Approach (ICD-10-PCS; 2025-06-29)
PROC: 03H733Z Insertion of Infusion Device into Right Brachial Artery, Percutaneous Approach (ICD-10-PCS; 2025-06-29)
PROC: 0KBW0ZZ Excision of Left Foot Muscle, Open Approach (ICD-10-PCS; principal; 2025-06-29 08:04)
PROC: 30233N1 Transfusion of Nonautologous Red Blood Cells into Peripheral Vein, Percutaneous Approach (ICD-10-PCS; 2025-06-30)
PROC: 0Y9J0ZZ Drainage of Left Lower Leg, Open Approach (ICD-10-PCS; 2025-07-06)
DX: A41.9 Sepsis, unspecified organism (principal); R65.21 Severe sepsis with septic shock; M72.6 Necrotizing fasciitis; N17.0 Acute kidney failure with tubular necrosis; R57.1 Hypovolemic shock; L97.429 Non-pressure chronic ulcer of left heel and midfoot with unspecified severity; E87.20 Acidosis, unspecified; E46 Unspecified protein-calorie malnutrition; I48.92 Unspecified atrial flutter; E66.2 Morbid (severe) obesity with alveolar hypoventilation; I48.20 Chronic atrial fibrillation, unspecified; R45.851 Suicidal ideations; E87.1 Hypo-osmolality and hyponatremia; E11.621 Type 2 diabetes mellitus with foot ulcer; E11.42 Type 2 diabetes mellitus with diabetic polyneuropathy; J44.9 Chronic obstructive pulmonary disease, unspecified; I10 Essential (primary) hypertension; E66.813 Obesity, class 3; E78.5 Hyperlipidemia, unspecified; Z89.512 Acquired absence of left leg below knee; E87.5 Hyperkalemia; E83.42 Hypomagnesemia; B96.4 Proteus (mirabilis) (morganii) as the cause of diseases classified elsewhere; Z79.01 Long term (current) use of anticoagulants; Z86.711 Personal history of pulmonary embolism; Z85.828 Personal history of other malignant neoplasm of skin; Z79.899 Other long term (current) drug therapy; E11.65 Type 2 diabetes mellitus with hyperglycemia; Z79.4 Long term (current) use of insulin

== ENCOUNTER → 2025-08-13 | Outpatient (CLI) | payer MEDICARE, MEDICAID ==
[~2025-08-13] MED LIST changes: +CARV6.25 PO; +INSUHUMDS SC; +INSULANT SC; +MAGN400T33 PO; +SOLI1INJ SC; +TIOT18CA INH
== END ==
LOC: M RAD 13:57
PROVIDERS: ATTEND Physician Assistant
DX: T87.44 Infection of amputation stump, left lower extremity (principal); M79.89 Other specified soft tissue disorders; Z89.512 Acquired absence of left leg below knee; Y83.5 Amputation of limb(s) as the cause of abnormal reaction of the patient, or of later complication, without mention of misadventure at the time of the procedure